=== PATIENT | male | born 1970 | race African-American/Black ===

== ENCOUNTER 2022-05-17 07:33 | Inpatient (IN) | payer OTHER ==
[2022-05-17] MEDS ORDERED: hydrALAZINE HCL 20 MG/ML 1 ML VIAL IVP STA ×2 (07:49→10:03)
--- NOTE | 2022-05-17 07:52 | ED ---
General Adult HPI - General Chief complaint: Headache Stated complaint: headache Time Seen by Provider: 05/17/22 07:40 Source: patient, RN notes reviewed, old records reviewed Mode of arrival: ambulatory Limitations: no limitations - History of Present Illness Initial comments: This is a 51-year-old male who presents emergency Department stating he has a past medical history significant for high blood pressure high cholesterol and smoking. Patient states she continues to smoke but he has not taken his blood pressure medications or cholesterol medications lately. Patient states he comes in today because on his way to work he had a headache and he had a little bit of blurred vision which she states this happened before when blood pressure is high so he came to the emergency department. Patient denies any numbness or weakness. Patient denies any lightheadedness dizziness or near syncopal episode. Patient denies any chest pain difficulty breathing shortness of breath. Patient denies any recent fever chills or cough. Patient denies any u pper respiratory symptoms. Patient denies any abdominal pain. Patient denies any recent injury or trauma. - Related Data Home Medications Medication Instructions Recorded Confirmed Atorvastatin [Lipitor] 80 mg PO DAILY 04/23/22 04/23/22 Ergocalciferol [Vitamin D2 (1250 1,250 mcg PO Q30D 04/23/22 04/23/22 Mcg = 71328 Iu)] Multivit-Min/Folic/Vit K/Lycop 1 each PO DAILY 04/23/22 04/23/22 [Men's Multivitamin Tablet] amLODIPine [Norvasc] 10 mg PO DAILY 04/23/22 04/23/22 cloNIDine HCL [Catapres] 0.2 mg PO DAILY 04/23/22 04/23/22 Allergies Allergy/AdvReac Type Severity Reaction Status Date / Time No Known Allergies Allergy Verified 05/17/22 07:37 Review of Systems ROS Statement: Those systems with pertinent positive or pertinent negative responses have been documented in the HPI. ROS Other: All systems not noted in ROS Statement are negative. Past Medical History Past Medical History: Hypertension History of Any Multi-Drug Resistant Organisms: None Reported Past Surgical History: No Surgical Hx Reported Past Anesthesia/Blood Transfusion Reactions: No Reported Reaction Past Psychological History: No Psychological Hx Reported Smoking Status: Never smoker - Past Family History Mother Family Medical History: No Reported History General Exam - General Exam Comments Initial Comments: GENERAL: Patient is well-developed and well-nourished. Patient is nontoxic and well- hydrated and is in mild distress. ENT: Neck is soft and supple. No significant lymphadenopathy is noted. Oropharynx is clear. Moist mucous membranes. Neck has full range of motion without eliciting any pain. EYES: The sclera were anicteric and conjunctiva were pink and moist. Extraocular movements were intact and pupils were equal round and reactive to light. Eye lids were unremarkable. PULMONARY: Unlabored respirations. Good breath sounds bilaterally. No audible rales rhonchi or wheezing was noted. CARDIOVASCULAR: There is a regular rate and rhythm without any murmurs gallops or rubs. ABDOMEN: Soft and nontender with normal bowel sounds. SKIN: Skin is clear with no lesions or rashes and otherwise unremarkable. NEUROLOGIC: Patient is alert and oriented x3. Cranial nerves II through XII are grossly intact. Motor and sensory are also intact. Normal speech, volume and content. Symmetrical smile. MUSCULOSKELETAL: Normal extremities with adequate strength and full range of motion. No lower extremity swelling or edema. No calf tenderness. LYMPHATICS: No significant lymphadenopathy is noted PSYCHIATRIC: Normal psychiatric evaluation. Limitations: no limitations Course Vital Signs 05/17/22 05/17/22 05/17/22 07:34 08:00 08:30 Temperature 98.1 F Pulse Rate 130 H 116 H 88 Respiratory 18 18 18 Rate Blood Pressure 215/114 197/120 192/116 O2 Sat by Pulse 97 99 Oximetry 05/17/22 09:47 Temperature Pulse Rate 87 Respiratory 18 Rate Blood Pressure 224/130 O2 Sat by Pulse 98 Oximetry Medical Decision Making - Medical Decision Making Patient's EKG shows sinus tachycardia at 120 bpm UT interval 250 QRS is 85 Q-T intervals 05 QTC is 377. Patient's EKG shows signs of LVH. No ST segment elevation.p Chest x-ray shows no acute abnormality. Patient was given hydralazine 20 mg times one and labetalol 20 mg 2. Patient's blood pressure was 224/130 and it did come down a little patient continued to have symptoms of headache which did improved but not completely resolved and because of blood pressure could not be better controlled [facility] the patient admitted the patient wrote admitting orders. - Lab Data Result diagrams: 05/17/22 07:55 07/01/22 07:55 Lab Results 05/17/22 05/17/22 05/17/22 Range/Units 07:55 07:55 07:55 WBC 7.0 (3.8-10.6) k/uL RBC 5.02 (4.30-5.90) m/uL Hgb 15.9 (13.0-17.5) gm/dL Hct 47.4 (39.0-53.0) % MCV 94.5 (80.0-100.0) fL MCH 31.7 (25.0-35.0) pg MCHC 33.6 (31.0-37.0) g/dL RDW 13.1 (11.5-15.5) % Plt Count 215 (150-450) k/uL MPV 7.4 Neutrophils % 79 % Lymphocytes % 16 % Monocytes % 3 % Eosinophils % 1 % Basophils % 0 % Neutrophils # 5.5 (1.3-7.7) k/uL Lymphocytes # 1.1 (1.0-4.8) k/uL Monocytes # 0.2 (0-1.0) k/uL Eosinophils # 0.1 (0-0.7) k/uL Basophils # 0.0 (0-0.2) k/uL PT 10.7 (9.0-12.0) sec INR 1.0 (<1.2) APTT 23.5 (22.0-30.0) sec Sodium 142 (137-145) mmol/L Potassium 3.9 (3.5-5.1) mmol/L Chloride 109 H (98-107) mmol/L Carbon Dioxide 22 (22-30) mmol/L Anion Gap 11 mmol/L BUN 11 (9-20) mg/dL Creatinine 1.26 H (0.66-1.25) mg/dL Est GFR (CKD-EPI)AfAm 76 (>60 ml/min/1.73 sqM) Est GFR (CKD-EPI)NonAf 66 (>60 ml/min/1.73 sqM) Glucose 108 H (74-99) mg/dL Calcium 9.5 (8.4-10.2) mg/dL Magnesium 2.0 (1.6-2.3) mg/dL Total Bilirubin 0.4 (0.2-1.3) mg/dL AST 26 (17-59) U/L ALT 17 (4-49) U/L Alkaline Phosphatase 60 (38-126) U/L Troponin I (0.000-0.034) ng/mL Total Protein 8.0 (6.3-8.2) g/dL Albumin 5.1 H (3.5-5.0) g/dL Urine Opiates Screen (NotDetected) Ur Oxycodone Screen (NotDetected) Urine Methadone Screen (NotDetected) Ur Propoxyphene Screen (NotDetected) Ur Barbiturates Screen (NotDetected) U Tricyclic Antidepress (NotDetected) Ur Phencyclidine Scrn (NotDetected) Ur Amphetamines Screen (NotDetected) U Methamphetamines Scrn (NotDetected) U Benzodiazepines Scrn (NotDetected) Urine Cocaine Screen (NotDetected) U Marijuana (THC) Screen (NotDetected) 05/17/22 05/17/22 Range/Units 07:55 07:55 WBC (3.8-10.6) k/uL RBC (4.30-5.90) m/uL Hgb (13.0-17.5) gm/dL Hct (39.0-53.0) % MCV (80.0-100.0) fL MCH (25.0-35.0) pg MCHC (31.0-37.0) g/dL RDW (11.5-15.5) % Plt Count (150-450) k/uL MPV Neutrophils % % Lymphocytes % % Monocytes % % Eosinophils % % Basophils % % Neutrophils # (1.3-7.7) k/uL Lymphocytes # (1.0-4.8) k/uL Monocytes # (0-1.0) k/uL Eosinophils # (0-0.7) k/uL Basophils # (0-0.2) k/uL PT (9.0-12.0) sec INR (<1.2) APTT (22.0-30.0) sec Sodium (137-145) mmol/L Potassium (3.5-5.1) mmol/L Chloride (98-107) mmol/L Carbon Dioxide (22-30) mmol/L Anion Gap mmol/L BUN (9-20) mg/dL Creatinine (0.66-1.25) mg/dL Est GFR (CKD-EPI)AfAm (>60 ml/min/1.73 sqM) Est GFR (CKD-EPI)NonAf (>60 ml/min/1.73 sqM) Glucose (74-99) mg/dL Calcium (8.4-10.2) mg/dL Magnesium (1.6-2.3) mg/dL Total Bilirubin (0.2-1.3) mg/dL AST (17-59) U/L ALT (4-49) U/L Alkaline Phosphatase (38-126) U/L Troponin I 0.019 (0.000-0.034) ng/mL Total Protein (6.3-8.2) g/dL Albumin (3.5-5.0) g/dL Urine Opiates Screen Not Detected (NotDetected) Ur Oxycodone Screen Not Detected (NotDetected) Urine Methadone Screen Not Detected (NotDetected) Ur Propoxyphene Screen Not Detected (NotDetected) Ur Barbiturates Screen Not Detected (NotDetected) U Tricyclic Antidepress Not Detected (NotDetected) Ur Phencyclidine Scrn Not Detected (NotDetected) Ur Amphetamines Screen Not Detected (NotDetected) U Methamphetamines Scrn Not Detected (NotDetected) U Benzodiazepines Scrn Not Detected (NotDetected) Urine Cocaine Screen Detected H (NotDetected) U Marijuana (THC) Screen Detected H (NotDetected) Disposition Clinical Impression: Hypertensive urgency, Cocaine abuse Disposition: ADMITTED IP TO THIS [facility] Time of Disposition: 10:37
[2022-05-17] MEDS ORDERED: LABETALOL SYRINGE 5 MG/ML IVP STA (07:55)
[2022-05-17 08:09] LABS: Basophils % (A) 0 %; Eosinophils # (A) 0.1 k/uL (0-0.7); Eosinophils % (A) 1 %; HCT 47.4 % (39.0-53.0); HGB 15.9 gm/dL (13.0-17.5); Lymphocytes # (A) 1.1 k/uL (1.0-4.8); Lymphocytes % (A) 16 %; MCH 31.7 pg (25.0-35.0); MCHC 33.6 g/dL (31.0-37.0); MCV 94.5 fL (80.0-100.0); Mean Platelet Volume 7.4; Monocytes # (A) 0.2 k/uL (0-1.0); Monocytes % (A) 3 %; Neutrophils # (A) 5.5 k/uL (1.3-7.7); Neutrophils % (A) 79 %; Platelet Count 215 k/uL (150-450); RBC 5.02 m/uL (4.30-5.90); RDW 13.1 % (11.5-15.5)
[2022-05-17 08:17] LABS: Partial Thromboplastin Time 23.5 sec (22.0-30.0); Prothrombin Time 10.7 sec (9.0-12.0)
[2022-05-17 08:28] LABS: Albumin 5.1 g/dL (3.5-5.0); Calcium 9.5 mg/dL (8.4-10.2); Potassium 3.9 mmol/L (3.5-5.1); Total Bilirubin 0.4 mg/dL (0.2-1.3)
[2022-05-17] MEDS ORDERED: LABETALOL 5 MG/ML VIAL MDV IVP STA (08:35)
--- NOTE | 2022-05-17 08:41 | CT ---
EXAMINATION TYPE: CT brain wo con DATE OF EXAM: 05/17/2022 COMPARISON: None HISTORY: 51-year-old male with headache TECHNIQUE: Examination was done in axial plane without intravenous contrast. Coronal and sagittal r econstructions performed. CT DLP: 1078.4 mGycm Automated exposure control for dose reduction was used. FINDINGS: There is no evidence of acute intracranial hemorrhage, acute ischemic changes, mass, mass-effect, or extra-axial fluid collection. There is no effacement of cerebral sulci or basal subarachnoid cister ns. There is no hydrocephalus. There is no midline shift. Wilson-white matter distinction is preserv ed. Incidental partially empty sella. Paranasal sinuses and mastoid air cells well pneumatized. Leftward nasal septal deviation. Orbits and globes are intact. IMPRESSION: No acute intracranial abnormality seen.
--- NOTE | 2022-05-17 08:46 | XR ---
EXAMINATION TYPE: XR chest 2V DATE OF EXAM: 05/17/2022 COMPARISON: NONE TECHNIQUE: PA and lateral views submitted. HISTORY: Dizziness and chest FINDINGS: The lungs are clear and there is no pneumothorax, pleural effusion, or focal pneumonia. AC joint ar thropathy or ascites. No overt failure. IMPRESSION: 1. No acute process.
[2022-05-17] MEDS ORDERED: ASPIRIN-ACET-CAFF 250-250-65MG 1 EACH TAB PO STA (09:14)
[2022-05-17] MEDS ORDERED: KETOROLAC 15 MG/ML 1 ML VIAL IVP STA (09:15)
[2022-05-17] MEDS ORDERED: SODIUM CHLORIDE 0.9% 1,000 ML IV ONE (10:37)
[2022-05-17 10:42] LABS: Amphetamine Screen,Urine Not Detected (NotDetected); Barbiturate Screen,Urine Not Detected (NotDetected); Benzodiazepines Screen,Urine Not Detected (NotDetected); Cocaine Screen,Urine Detected (NotDetected); Methadone Screen, Urine Not Detected (NotDetected); Opiate Screen,Urine Not Detected (NotDetected); Oxycodone Screen, Urine Not Detected (NotDetected); Phencyclidine Screen,Urine Not Detected (NotDetected); Tricyclic Antidepressant,Urine Not Detected (NotDetected); Urn Cannabinoid Scrn Detected (NotDetected)
[2022-05-17] MEDS ORDERED: KETOROLAC 15 MG/ML 1 ML VIAL IVP PRN (15:49)
[2022-05-17] MEDS ORDERED: hydrALAZINE HCL 20 MG/ML 1 ML VIAL IVP PRN ×2 (15:49→20:18)
[2022-05-17] MEDS ORDERED: LORazepam 2 MG/ML INJ IV PRN (15:51)
[2022-05-17] MEDS ORDERED: ERGOCALCIFEROL 1,250 MCG (50,000 IU) CAPSULE PO SCH (16:00)
[2022-05-17] MEDS ORDERED: LORazepam 1 MG/0.5 ML VIAL IV PRN (18:03)
--- NOTE | 2022-05-17 19:33 | HP ---
HISTORY AND PHYSICAL CHIEF COMPLAINTS: Headache and chest pain. HISTORY OF PRESENT ILLNESS: This 51-year-old gentleman with a past medical history of hypertension was complaining of headache and chest pain. The pain was mostly central and left-sided chest pain which was tight in character. His blood pressure was also high and the patient came to [facility]. There is no history of any associated symptoms. No history of radiation of the pain elsewhere. The patient reports using cocaine a couple of days ago. The patient also has multiple social stressors, including the recent passing of his and other family members. PAST MEDICAL HISTORY: Hypertension. HOME MEDICATIONS: Reviewed. They include vitamin D2. Doses and the rest of the medications are reviewed. ALLERGIES: NONE. FAMILY HISTORY: No history of heart disease or strokes in the family. SOCIAL HISTORY: Occasional alcohol, THC, cocaine occasionally. REVIEW OF SYSTEMS: Fourteen-point review of systems negative except as mentioned earlier. PHYSICAL EXAMINATION: Pulse is 82, blood pressure 144/88, respiration 18. HEENT: Conjunctivae normal. NECK: No jugular venous distention. CARDIOVASCULAR: S1, S2 muffled. RESPIRATION: Breath sounds diminished at the bases. Scattered rhonchi and crackles. ABDOMEN: Soft. LEGS: No edema. No swelling. NERVOUS SYSTEM: No focal deficit. LABS: CBC within normal limits. ASSESSMENT: 1. Chest pain for evaluation. 2. Positive cocaine. 3. Hypertension. RECOMMENDATIONS AND DISCUSSION: In this 51-year-old gentleman who presented with multiple complex medical issues, we will monitor the patient closely. I would recommend hydralazine p.r.n. and Norvasc to be continued. Cardiology consultation. Guarded prognosis because of multiple complex medical issues. Further recommendations to follow. MMODL / IJN: [id number] /
[2022-05-17] MEDS ORDERED: cloNIDine HCL 0.2 MG TAB PO STA (20:17)
[2022-05-17] MEDS: LORazepam 1 MG TAB PO PRN (20:39)
[2022-05-18] MEDS: ATORVASTATIN 80 MG TAB PO SCH (08:28)
[2022-05-18 08:40] LABS: Basophils # (A) 0.1 k/uL (0-0.2); Basophils % (A) 1 %; Eosinophils # (A) 0.1 k/uL (0-0.7); Eosinophils % (A) 2 %; HCT 44.1 % (39.0-53.0); HGB 14.3 gm/dL (13.0-17.5); Lymphocytes # (A) 2.2 k/uL (1.0-4.8); Lymphocytes % (A) 51 %; MCH 31.3 pg (25.0-35.0); MCHC 32.4 g/dL (31.0-37.0); MCV 96.6 fL (80.0-100.0); Mean Platelet Volume 8.9; Monocytes # (A) 0.2 k/uL (0-1.0); Monocytes % (A) 5 %; Neutrophils # (A) 1.7 k/uL (1.3-7.7); Neutrophils % (A) 40 %; Platelet Count 199 k/uL (150-450); RBC 4.56 m/uL (4.30-5.90); WBC 4.4 k/uL (3.8-10.6)
[2022-05-18 08:51] LABS: Calcium 8.8 mg/dL (8.4-10.2); Potassium 3.8 mmol/L (3.5-5.1)
[2022-05-18] MEDS ORDERED: cloNIDine HCL 0.2 MG TAB PO SCH (09:00)
[2022-05-18] MEDS ORDERED: amLODIPine 10 MG TAB PO SCH (09:00)
[2022-05-18] MEDS ORDERED: hydroCHLOROthiazide 25 MG TAB PO SCH (10:00)
--- NOTE | 2022-05-18 10:02 | P.CRDCN ---
History of Present Illness Consult date: 05/18/22 History of present illness: History of Present Illness: The patient is a 51-year-old male who presents with symptoms of headache, was noted to have hypertension, controlled. The patient has not taking his medication for the last few days. He denies any chest discomfort or significant dyspnea. He is usually active physically without any limitations. He has a long-standing history of hypertension and hyperlipidemia, he is a nondiabetic. He has a history of drug use and uses cocaine more frequently since the of his brother and recently. He has been under increased amount of stress. He has no history of CHF, he denies any PND, orthopnea or peripheral edema. He has no history of syncope. He has occasional alcohol intake. Medications: Was not taking medication on presentation Review of Systems: Respiratory: No history of asthma, bronchitis or recent cough. GI: No nausea or vomiting . No history of peptic ulcer disease. No recent GI bleed. : No hematuria or dysuria. Nervous System: No stroke or seizure. Physical Examination: 51-year-old male, alert and oriented no apparent distress ,Blood pressure 148/70, was 215/114 on admission Heart rate in the 70s Head: Normocephalic. Eyes: Sclerae nonicteric. Neck: Good carotid upstroke, no bruit, no jugular venous distention. Lungs: Clear to auscultation. Heart: Regular rate and rhythm, S1-S2, no S3, no rub. No murmur. Abdomen: Soft nontender, positive bowel sounds no organomegaly. Extremities: No edema, intact distal pulses. Labs: BUN 14, creatinine 1.1, potassium 3.8. Drug screen positive for cocaine and marijuana EKG: EKG was sinus tachycardia and left ventricle hypertrophy Impression: 1. Hypertension, uncontrolled. Patient was not taking his medication 2. History of drug abuse 3. History of smoking Plan: 1. Add hydrochlorothiazide and JOI inhibitor 2. Stop clonidine because of the concern of rebound 3. Continue amlodipine and statin 4. Obtain an echocardiogram with Doppler 5. The importance of drug abuse cessation was discussed with the patient 6. Depending on the trend of his blood pressure further recommendations will be made. Thank you for this consult we will follow with you. Past Medical History Past Medical History: Hypertension History of Any Multi-Drug Resistant Organisms: None Reported Past Surgical History: No Surgical Hx Reported Past Anesthesia/Blood Transfusion Reactions: No Reported Reaction Past Psychological History: No Psychological Hx Reported Smoking Status: Never smoker Past Alcohol Use History: Occasional Past Drug Use History: Marijuana Additional Drug Use History / Comment(s): OCCASIONAL MARIJUANA USE-INSTRUCTED TO REFRAIN FROM USE FOR AT LEAST 24 HOURS PRIOR TO PROCEDURE - Past Family History Mother Family Medical History: No Reported History Medications and Allergies Home Medications Medication Instructions Recorded Confirmed Type Atorvastatin [Lipitor] 80 mg PO DAILY 04/23/22 05/17/22 History Ergocalciferol [Vitamin D2 (1250 1,250 mcg PO QMONTHLY 04/23/22 05/17/22 History Mcg = 50087 Iu)] amLODIPine [Norvasc] 10 mg PO DAILY 04/23/22 05/17/22 History Allergies Allergy/AdvReac Type Severity Reaction Status Date / Time No Known Allergies Allergy Verified 05/17/22 11:05 Physical Exam Vitals: Vital Signs Temp Pulse Pulse Pulse Resp BP BP 05/18/22 08:19 05/18/22 08:00 98 F 63 20 148/71 05/18/22 03:53 98.2 F 64 116/66 05/18/22 00:12 98.0 F 66 111/63 05/17/22 21:13 74 05/17/22 20:00 98.6 F 75 18 199/69 05/17/22 19:26 73 18 167/80 05/17/22 19:00 167/86 05/17/22 18:54 18 176/92 05/17/22 18:00 176/92 05/17/22 17:00 69 16 156/86 05/17/22 16:18 62 16 159/97 05/17/22 15:29 82 18 145/88 05/17/22 13:22 80 18 190/84 05/17/22 10:56 90 18 183/99 Pulse Ox 05/18/22 08:19 97 05/18/22 08:00 100 05/18/22 03:53 100 05/18/22 00:12 99 05/17/22 21:13 05/17/22 20:00 100 05/17/22 19:26 100 05/17/22 19:00 05/17/22 18:54 99 05/17/22 18:00 05/17/22 17:00 100 05/17/22 16:18 99 05/17/22 15:29 99 05/17/22 13:22 99 05/17/22 10:56 100 Intake and Output 05/17/22 05/18/22 05/18/22 22:59 06:59 14:59 Other: Weight 81.647 kg Results 05/18/22 08:12 05/18/22 08:12 CBC 05/18/22 Range/Units 08:12 WBC 4.4 (3.8-10.6) k/uL RBC 4.56 (4.30-5.90) m/uL Hgb 14.3 (13.0-17.5) gm/dL Hct 44.1 (39.0-53.0) % Plt Count 199 (150-450) k/uL Comprehensive Metabolic Panel 05/18/22 Range/Units 08:12 Sodium 140 (137-145) mmol/L Potassium 3.8 (3.5-5.1) mmol/L Chloride 107 (98-107) mmol/L Carbon Dioxide 25 (22-30) mmol/L BUN 14 (9-20) mg/dL Creatinine 1.18 (0.66-1.25) mg/dL Glucose 95 (74-99) mg/dL Calcium 8.8 (8.4-10.2) mg/dL Current Medications Generic Name Dose Route Start Last Admin Trade Name Freq PRN Reason Stop Dose Admin Amlodipine Besylate 10 mg 05/18/22 09:00 05/18/22 08:28 Amlodipine 10 Mg Tab PO 10 mg DAILY RANDAL Administration Atorvastatin Calcium 80 mg 05/18/22 09:00 05/18/22 08:28 Atorvastatin 80 Mg Tab PO 80 mg DAILY RANDAL Administration Ergocalciferol 1,250 mcg 05/17/22 16:00 05/17/22 16:48 Ergocalciferol 1,250 Mcg (50,000 Iu) Capsule PO 1,250 mcg QMONTHLY RANDAL Administration Hydralazine HCl 10 mg 05/17/22 20:18 Hydralazine Hcl 20 Mg/Ml 1 Ml Vial IVP Q6HR PRN Blood Pressure - High Hydrochlorothiazide 25 mg 05/18/22 10:00 Hydrochlorothiazide 25 Mg Tab PO DAILY RANDAL Ketorolac Tromethamine 15 mg 05/17/22 15:49 Ketorolac 15 Mg/Ml 1 Ml Vial IVP 05/20/22 15:50 Q6HR PRN Pain Lisinopril 5 mg 05/18/22 21:00 Lisinopril 2.5 Mg Tab PO BID RANDAL Lorazepam 1 mg 05/17/22 20:18 05/17/22 20:39 Lorazepam 1 Mg Tab PO 1 mg Q6HR PRN Administration Anxiety Intake and Output 05/17/22 05/18/22 05/18/22 22:59 06:59 14:59 Other: Weight 81.647 kg 05/18/22 08:12 05/18/22 08:12
[2022-05-18 11:41] VITALS: BMI 23.7
--- NOTE | 2022-05-18 14:00 | CA ---
Transthoracic Echo Report Name: Guanakito Mercedes Age: 51 Gender: M : 1970 Exam Date: 05/18/2022 12:07 Exam Location: [place] [facility] Ht (in): 73 Wt (lb): 180 Ordering Physician: Shun Ngo MD ([id number]) Attending/Referring Phys: Magnetic Resonance Imaging Coordinator Josephine Cast RDCS Procedure CPT: Indications: HTN Cardiac Hx: Technical Quality: Good Contrast 1: Total Dose (mL): Contrast 2: Total Dose (mL): MEASUREMENTS (Male / Female) Normal Values 2D ECHO LV Diastolic Diameter PLAX 3.9 cm 4.2 - 5.9 / 3.9 - 5.3 cm LV Systolic Diameter PLAX 2.6 cm IVS Diastolic Thickness 1.4 cm 0.6 - 1.0 / 0.6 - 0.9 cm LVPW Diastolic Thickness 1.6 cm 0.6 - 1.0 / 0.6 - 0.9 cm LV Relative Wall Thickness 0.8 RV Internal Dim ED PLAX 2.4 cm LA Volume 62.6 cm??? 18 - 58 / 22 - 52 cm??? M-MODE Aortic Root Diameter MM 3.1 cm LA Systolic Diameter MM 2.9 cm LA Ao Ratio MM 0.9 AV Cusp Separation MM 2.3 cm DOPPLER AV Peak Velocity 140.1 cm/s AV Peak Gradient 7.9 mmHg LVOT Peak Velocity 122.2 cm/s LVOT Peak Gradient 6.0 mmHg MV Area PHT 5.3 cm??? Mitral E Point Velocity 79.1 cm/s Mitral A Point Velocity 82.2 cm/s Mitral E to A Ratio 1.0 MV Deceleration Time 142.1 ms TR Peak Velocity 190.5 cm/s TR Peak Gradient 14.5 mmHg Right Ventricular Systolic Press 19.5 mmHg FINDINGS Left Ventricle Moderately increased left ventricular wall thickness. Normal left ventricular systolic function with no obvious regional wall motion abnormalities. Left ventricular ejection fraction is estimated at 55-60 %. Right Ventricle Normal right ventricular size and function. Right ventricular systolic pressure within normal limits. Right Atrium Normal right atrial size. Left Atrium Mildly increased left atrial volume. No evidence for an atrial septal defect. Mitral Valve Structurally normal mitral valve. No mitral stenosis, regurgitation or prolapse. Aortic Valve Trileaflet aortic valve. No aortic valve stenosis or regurgitation. Tricuspid Valve Structurally normal tricuspid valve. Mild tricuspid regurgitation. Pulmonic Valve Trace pulmonic regurgitation. Pericardium No pericardial effusion. Aorta Normal size aortic root and proximal ascending aorta. CONCLUSIONS 1. Normal size and systolic function 2. Mild left atrial dilatation 3. Mild tricuspid regurgitation Previewed by: Dr. Shun Ngo MD (Electronically Signed) Final Date: 18 May 2022 13:59
[2022-05-18] MEDS: SODIUM CHLORIDE 0.9% 1,000 ML IV SCH (17:02)
--- NOTE | 2022-05-18 17:13 | PN ---
PROGRESS NOTE DATE OF SERVICE: 05/18/2022 This 51-year-old gentleman who was admitted with chest pain and hypertension is being closely monitored. Patient complains of dizziness at this time. No chest pain. No palpitations. Cardiology is following the patient closely. Patient has a history of cocaine. Two-D echo shows mild left atrial dilatation. On exam, pulse is 69, blood pressure 93/54, respiration 20. HEENT: Conjunctivae normal. NECK: No jugular venous distention. CARDIOVASCULAR: S1, S2 muffled. RESPIRATION: Breath sounds diminished at the bases. ABDOMEN: Soft. NERVOUS SYSTEM: No focal deficit. Labs are reviewed; normal. ASSESSMENT: 1. Chest pain for evaluation. 2. Positive cocaine. 3. Hypertension. 4. Dizziness. RECOMMENDATIONS AND DISCUSSION: I recommend to continue current medications, continue with the monitoring, symptomatic treatment. Cut down the blood pressure medications. Closely follow. Further recommendations to follow. MMODL / IJN: [id number] /
[2022-05-18] MEDS: lisinopriL 5 MG TAB PO SCH (20:02)
[2022-05-18] MEDS: LORazepam 1 MG TAB PO PRN (22:53)
[2022-05-19] MEDS: SODIUM CHLORIDE 0.9% 1,000 ML IV SCH (07:28)
[2022-05-19] MEDS: lisinopriL 5 MG TAB PO SCH (07:30)
[2022-05-19] MEDS: ATORVASTATIN 80 MG TAB PO SCH (07:30)
[2022-05-19 07:36] VITALS: BP 148/83; PULSE 63; RESP 16; TEMP 97.9
[2022-05-19] MEDS ORDERED: amLODIPine 2.5 MG TAB PO SCH (09:00)
[2022-05-19 11:07] LABS: Basophils # (A) 0.1 k/uL (0-0.2); Basophils % (A) 3 %; Eosinophils # (A) 0.1 k/uL (0-0.7); Eosinophils % (A) 2 %; HCT 43.7 % (39.0-53.0); HGB 14.2 gm/dL (13.0-17.5); Lymphocytes # (A) 2.5 k/uL (1.0-4.8); Lymphocytes % (A) 48 %; MCH 31.2 pg (25.0-35.0); MCHC 32.4 g/dL (31.0-37.0); Mean Platelet Volume 8.7; Monocytes # (A) 0.3 k/uL (0-1.0); Monocytes % (A) 5 %; Neutrophils # (A) 2.1 k/uL (1.3-7.7); Neutrophils % (A) 41 %; Platelet Count 183 k/uL (150-450); RBC 4.55 m/uL (4.30-5.90); RDW 12.8 % (11.5-15.5); WBC 5.2 k/uL (3.8-10.6)
[2022-05-19 11:17] LABS: African American GFR (CKD) >90 (>60 ml/min/1.73 sqM); Anion Gap 5 mmol/L; Blood Urea Nitrogen 11 mg/dL (9-20); Carbon Dioxide 30 mmol/L (22-30); Chloride 105 mmol/L (98-107); Glucose 73 mg/dL (74-99); Non-African American GFR(CKD) 81 (>60 ml/min/1.73 sqM); Potassium 4.2 mmol/L (3.5-5.1); Sodium 140 mmol/L (137-145)
--- NOTE | 2022-05-19 14:18 | P.PN ---
Subjective Progress Note Date: 05/19/22 This is a pleasant 51-year-old gentleman presented to the hospital with symptoms of headache and was noted to be hypertensive. He apparently was not taking his medications for the last few days. He was started back on amlodipine 2.5 mg daily as well as lisinopril 5 mg twice a day. Blood pressure has been better controlled. He does have a history of drug use and has been using cocaine more frequently since the of his brother and . He is currently working 2 jobs and not sleeping. Overall today he is feeling better. No further headaches. Blood pressure is better controlled. Echocardiogram with Doppler study showed normal LV systolic function with mild TR. Objective - Vital Signs Vital signs: Vital Signs Temp 97.9 F 05/19/22 07:35 Pulse 63 05/19/22 07:35 Resp 16 05/19/22 07:35 BP 148/83 05/19/22 07:35 Pulse Ox 99 05/19/22 08:13 FiO2 Intake & Output 05/18/22 05/19/22 05/19/22 18:59 06:59 18:59 Intake Total 150 222 Balance 150 222 Weight 81.647 kg Intake: Intake, IV Titration 150 Amount Sodium Chloride 0.9% 1, 150 000 ml @ 75 mls/hr IV . [id number] [facility] Rx#:[id number] Oral 222 Other: Voiding Method Toilet # Voids 2 - Exam PHYSICAL EXAMINATION: HEENT: Head is atraumatic, normocephalic. Pupils equal, round. Neck is supple. There is no elevated jugular venous pressure. HEART EXAMINATION: Heart sounds regular, S1 and S2 normal. No murmur or gallop heard. CHEST EXAMINATION: Lungs are clear to auscultation and precussion. No chest wall tenderness is noted on palpation or with deep breathing. ABDOMEN: Soft, nontender. Bowel sounds are heard. No organomegaly noted. EXTREMITIES: 2+ peripheral pulses with no evidence of peripheral edema and no calf tenderness noted. NEUROLOGIC patient is awake, alert and oriented x3. - Labs CBC & Chem 7: 05/19/22 10:42 05/19/22 10:42 Labs: Abnormal Lab Results - Last 24 Hours (Table) 05/19/22 Range/Units 10:42 Glucose 73 L (74-99) mg/dL Assessment and Plan Assessment: #1 hypertension #2 medication noncompliance #3 drug abuse #4 history of smoking Plan: From cardiology's perspective medications were reviewed and will continue the same. From our standpoint patient is stable for discharge home today. [employer] note has been reviewed, I agree with a documented findings and plan of care. Patient was seen and examined.
--- NOTE | 2022-05-22 09:24 | P.DS ---
Providers Date of admission: 05/17/22 10:37 Expected date of discharge: 05/19/22 Attending physician: Mark Agosto Consults: 05/17/22 15:48 Consult Physician Routine Consulting Provider: Francesco Denis Consult Reason/Comments: chest pain Do you want consulting provider notified?: Yes Primary care physician: Hardik Bernard Hospital Course: Final diagnosis Chest pain for evaluation Positive cocaine Hypertension Dizziness Discharge disposition Patient is being discharged in a stable condition with guarded prognosis to home. Patient will follow-up with Dr. Bernard in the outpatient setting upon discharge. Patient is to follow-up with cardiology Dr. Ngo as scheduled. Patient will continue on lisinopril and Norvasc. Total time taken is greater than 35 minutes. Hospital course This is a 51-year-old male who was recently admitted with chest pain and hypertension and was being closely monitored. Cardiology following and patient underwent 2-D echo showing some mild left atrial dilatation. Patient does have a past medical history of cocaine use and drug screen was positive for cocaine. Patient having some dizziness with medication adjustments and held overnight with close observation and patient reports feeling much better today and blood pressure in better control and would like to go home. Prescriptions provided for medications and encourage the patient follow-up with cardiology as scheduled along with primary care provider Dr. Bernard on discharge. Patient encouraged to refrain from any drug or alcohol use. Currently no reports of chest pain, shortness of breath, or palpitations. Patient is afebrile. No reports of nausea or vomiting and patient is tolerating diet. Patient will be discharged home today. Guarded prognosis. On exam vital signs are stable. Cardio S1, S2 are muffled. Respiratory system shows diminished breath sounds at the bases with no wheezing or rhonchi noted. Abdomen is soft and nontender. Nervous system shows no focal deficits. Please refer to medication reconciliation sheet for a list of medications. The impression and plan of care has been dictated by Rere Riojas, Nurse Practitioner as directed. Dr. Surendra MD I have performed a history and examination and MDM of this patient, discussed the same with the dictator, and agree with the dictator's assessment and plan as written ,documented as a scribe. Based on total visit time, I have performed more than 50% of the visit. Patient Condition at Discharge: Stable Plan - Discharge Summary Discharge Rx Participant: Yes New Discharge Prescriptions: New LORazepam [Ativan] 1 mg PO Q6HR PRN #6 tab PRN Reason: Anxiety lisinopriL [Zestril] 5 mg PO BID #60 tab amLODIPine [Norvasc] 2.5 mg PO DAILY #30 tab Continue Ergocalciferol [Vitamin D2 (1250 Mcg = 70127 Iu)] 1,250 mcg PO QMONTHLY Atorvastatin [Lipitor] 80 mg PO DAILY 30 Days #30 tab Discontinued amLODIPine [Norvasc] 10 mg PO DAILY Discharge Medication List Ergocalciferol [Vitamin D2 (1250 Mcg = 79298 Iu)] 1,250 mcg PO QMONTHLY 04/23/22 [History] Atorvastatin [Lipitor] 80 mg PO DAILY 30 Days #30 tab 05/19/22 [Rx] LORazepam [Ativan] 1 mg PO Q6HR PRN #6 tab 05/19/22 [Rx] amLODIPine [Norvasc] 2.5 mg PO DAILY #30 tab 05/19/22 [Rx] lisinopriL [Zestril] 5 mg PO BID #60 tab 05/19/22 [Rx] Follow up Appointment(s)/Referral(s): Hardik Bernard MD [Primary Care Provider] - 1-2 days (Offices are closed please call to make a post hospital follow up appointment.) Shun Ngo MD [STAFF PHYSICIAN] - 1 Week (Offices are closed please call to make a post hospital follow up appointment.) Ambulatory/Diagnostic Orders: Complete Blood Count w/diff [LAB.AMB] Time Frame: 3 Days, Location: None Selected Patient Instructions/Handouts: Hypertensive Crisis (DC) Activity/Diet/Wound Care/Special Instructions: Activity Limited until follow-up Follow-up with primary care provider on discharge Follow-up with cardiology outpatient Continue heart healthy diet Continue to monitor blood pressure and keep a daily diary of readings for primary and cardiology follow-up Recommend repeat CBC and BMP in the next 2-3 days Avoid any alcohol or drug use Discharge Disposition: HOME SELF-CARE
== END 2022-05-19 14:43 | disposition home or self-care (01) | DRG 305 ==
LOC: EC 07:33 → 3SCARD 10:37
PROVIDERS: ADMIT Hospitalist; ATTEND Hospitalist
DX: I11.9 Hypertensive heart disease without heart failure (principal); I16.0 Hypertensive urgency; F14.10 Cocaine abuse, uncomplicated; R07.9 Chest pain, unspecified; R00.0 Tachycardia, unspecified; T46.1X6A Underdosing of calcium-channel blockers, initial encounter; T46.4X6A Underdosing of angiotensin-converting-enzyme inhibitors, initial encounter; Z91.14 Patient's other noncompliance with medication regimen; E78.00 Pure hypercholesterolemia, unspecified; F17.210 Nicotine dependence, cigarettes, uncomplicated; F43.9 Reaction to severe stress, unspecified; I07.1 Rheumatic tricuspid insufficiency; Z72.820 Sleep deprivation; Z63.4 Disappearance and death of family member; Z79.899 Other long term (current) drug therapy; Z71.51 Drug abuse counseling and surveillance of drug abuser; Z71.3 Dietary counseling and surveillance
CPT/HCPCS: 36415; 70450; 71046; 80048; 80053; 80306; 83735; 84484; 85025; 85610; 85730; 93005; 93306; 94760; 96361; 96374; 96375; 96376; 99285

== ENCOUNTER 2022-06-11 12:08 | Inpatient (IN) | payer MEDICAID, OTHER ==
--- NOTE | 2022-06-11 17:26 | ED ---
Psych HPI - General Chief Complaint: Psychiatric Symptoms Stated Complaint: Depression Time Seen by Provider: 06/11/22 14:47 Source: patient Mode of arrival: ambulatory - History of Present Illness Initial Comments: Patient is a 51-year-old male who presents to the emergency department for psychiatric evaluation. Patient was sent in by Dr. Bernard today. Patient states he is very depressed due to some major changes. His this past October and his brother very recently. Patient recently lost custody of his stepdaughter. Patient states he used to see a therapist which helped him however he stopped seeing the therapist because they told him he was doing better. Patient denies suicidal and homicidal ideation. Admits to alcohol use, estimates a tall beer every other day. Admits to cocaine use. Last time using cocaine was today which was 3-4 lines. Denies other drug use. Denies fever, chills, chest pain, palpitations, lightheadedness, dizziness, shortness of breath, abdominal pain, nausea, vomiting, and other concerns. - Related Data Home Medications Medication Instructions Recorded Confirmed Ergocalciferol [Vitamin D2 (1250 1,250 mcg PO QMONTHLY 04/23/22 06/11/22 Mcg = 92580 Iu)] amLODIPine [Norvasc] 10 mg PO DAILY 06/11/22 06/11/22 Previous Rx's Medication Instructions Recorded Atorvastatin [Lipitor] 80 mg PO DAILY 30 Days #30 tab 05/19/22 lisinopriL [Zestril] 5 mg PO BID #60 tab 05/19/22 Allergies Allergy/AdvReac Type Severity Reaction Status Date / Time No Known Allergies Allergy Verified 06/11/22 15:58 Review of Systems ROS Statement: Those systems with pertinent positive or pertinent negative responses have been documented in the HPI. ROS Other: All systems not noted in ROS Statement are negative. Past Medical History Past Medical History: Hypertension History of Any Multi-Drug Resistant Organisms: None Reported Past Surgical History: No Surgical Hx Reported Past Anesthesia/Blood Transfusion Reactions: No Reported Reaction Past Psychological History: No Psychological Hx Reported Smoking Status: Never smoker Past Alcohol Use History: Occasional Past Drug Use History: Cocaine, Marijuana - Past Family History Mother Family Medical History: No Reported History General Exam General appearance: alert, in no apparent distress Head exam: Present: atraumatic, normocephalic, normal inspection Eye exam: Present: normal appearance, PERRL, EOMI. Absent: scleral icterus, conjunctival injection, periorbital swelling Respiratory exam: Present: normal lung sounds bilaterally. Absent: respiratory distress, wheezes, rales, rhonchi, stridor Cardiovascular Exam: Present: regular rate, normal rhythm, normal heart sounds. Absent: systolic murmur, diastolic murmur, rubs, gallop, clicks Neurological exam: Present: alert, oriented X3, CN II-XII intact Psychiatric exam: Present: normal affect, depressed. Absent: normal mood Skin exam: Present: warm, dry, intact, normal color. Absent: rash Course Vital Signs 06/11/22 12:32 Temperature 98.5 F Pulse Rate 82 Respiratory 18 Rate Blood Pressure 169/97 O2 Sat by Pulse 99 Oximetry Medical Decision Making - Medical Decision Making This is a 51-year-old male who presents for psychiatric evaluation. Thorough history and examination were performed. Patient is well-appearing. Breath alcohol is 0. Due to patient's recent cocaine use I did obtain EKG which shows sinus rhythm without ST segment or T-wave changes. Patient is cleared medically. He may be evaluated by emergency psychiatric services. Patient evaluated and will be admitted. Dr. Mancuso is my attending. - Lab Data Lab Results 06/11/22 Range/Units 17:55 Urine Color Light Yellow Urine Appearance Cloudy (Clear) Urine pH 7.5 (5.0-8.0) Ur Specific [place] 1.011 (1.001-1.035) Urine Protein Negative (Negative) Urine Glucose (UA) Negative (Negative) Urine Ketones 1+ H (Negative) Urine Blood Negative (Negative) Urine Nitrite Negative (Negative) Urine Bilirubin Negative (Negative) Urine Urobilinogen <2.0 (<2.0) mg/dL Ur Leukocyte Esterase Negative (Negative) Urine RBC 1 (0-5) /hpf Urine WBC 2 (0-5) /hpf Ur Squamous Epith Cells <1 (0-4) /hpf Urine Mucus Rare H (None) /hpf Urine Yeast (Budding) Many H (None) /hpf Urine Opiates Screen Not Detected (NotDetected) Ur Oxycodone Screen Not Detected (NotDetected) Urine Methadone Screen Not Detected (NotDetected) Ur Propoxyphene Screen Not Detected (NotDetected) Ur Barbiturates Screen Not Detected (NotDetected) U Tricyclic Antidepress Not Detected (NotDetected) Ur Phencyclidine Scrn Not Detected (NotDetected) Ur Amphetamines Screen Not Detected (NotDetected) U Methamphetamines Scrn Not Detected (NotDetected) U Benzodiazepines Scrn Not Detected (NotDetected) Urine Cocaine Screen Detected H (NotDetected) U Marijuana (THC) Screen Detected H (NotDetected) - EKG Data EKG Comments: EKG taken at 16:32 Sinus rhythm, no ST segment or T-wave abnormalities Ventricular rate 66 MO interval 125 QRS duration 89 QTc 434 Disposition Clinical Impression: Depression Disposition: ADMITTED IP TO THIS [facility] Condition: Good Referrals: Hardik Bernard MD [Primary Care Provider] - 1-2 days Decision Time: 20:56
[2022-06-11 18:29] LABS: Appearance,Urine Cloudy (Clear); Bilirubin,Urine Negative (Negative); Blood,Urine Negative (Negative); Budding Yeast,Urine Many /hpf; Color,Urine Light Yellow; Glucose,Urine (UA) Negative (Negative); Ketones,Urine 1+ (Negative); Leukocyte Esterase,Urine Negative (Negative); Mucus,Urine Rare /hpf; Nitrite,Urine Negative (Negative); PH, Urine 7.5 (5.0-8.0); Protein,Urine Negative (Negative); RBC,Urine 1 /hpf (0-5); Specific Gravity,Urine 1.011 (1.001-1.035); Squamous Epithelial Cell,Urine <1 /hpf (0-4); Urobilinogen,Urine <2.0 mg/dL (<2.0); WBC,Urine 2 /hpf (0-5)
[2022-06-11 18:34] LABS: Amphetamine Screen,Urine Not Detected (NotDetected); Barbiturate Screen,Urine Not Detected (NotDetected); Benzodiazepines Screen,Urine Not Detected (NotDetected); Cocaine Screen,Urine Detected (NotDetected); Methadone Screen, Urine Not Detected (NotDetected); Opiate Screen,Urine Not Detected (NotDetected); Oxycodone Screen, Urine Not Detected (NotDetected); Phencyclidine Screen,Urine Not Detected (NotDetected); Tricyclic Antidepressant,Urine Not Detected (NotDetected); Urn Cannabinoid Scrn Detected (NotDetected)
[2022-06-11] MEDS: amLODIPine 10 MG TAB PO SCH (23:12)
[2022-06-11] MEDS: ATORVASTATIN 80 MG TAB PO SCH (23:12)
[2022-06-11] MEDS: lisinopriL 5 MG TAB PO SCH (23:12)
[2022-06-11] MEDS ORDERED: MAG HYDROX/AL HYDROX/SIMETH 30 ML CUP PO PRN (23:54)
[2022-06-11] MEDS ORDERED: ACETAMINOPHEN TAB 325 MG TAB PO PRN (23:54)
[2022-06-11] MEDS ORDERED: MAGNESIUM HYDROXIDE 2,400 MG/10 ML CUP PO PRN (23:54)
[2022-06-11] MEDS ORDERED: HALOPERIDOL LACTATE 5 MG/ML 1 ML VIAL IM PRN (23:54)
[2022-06-11] MEDS ORDERED: LORazepam 1 MG TAB PO PRN (23:54)
[2022-06-11] MEDS ORDERED: LORazepam 2 MG/ML INJ IM PRN (23:59)
[2022-06-11] MEDS ORDERED: haloperidoL 5 MG TAB PO PRN (23:59)
[2022-06-12 07:33] LABS: Basophils % (A) 1 %; Eosinophils # (A) 0.1 k/uL (0-0.7); Eosinophils % (A) 2 %; HCT 52.7 % (39.0-53.0); Lymphocytes % (A) 57 %; MCH 31.8 pg (25.0-35.0); MCHC 32.9 g/dL (31.0-37.0); MCV 96.6 fL (80.0-100.0); Mean Platelet Volume 8.1; Monocytes # (A) 0.2 k/uL (0-1.0); Monocytes % (A) 3 %; Neutrophils # (A) 1.9 k/uL (1.3-7.7); Neutrophils % (A) 37 %; Platelet Count 286 k/uL (150-450); RBC 5.46 m/uL (4.30-5.90); RDW 13.5 % (11.5-15.5); WBC 5.3 k/uL (3.8-10.6)
[2022-06-12 07:41] LABS: HGB 17.3 gm/dL (13.0-17.5)
[2022-06-12 07:56] LABS: ALT 17 U/L (4-49); AST 26 U/L (17-59); African American GFR (CKD) 81 (>60 ml/min/1.73 sqM); Albumin 4.6 g/dL (3.5-5.0); Alkaline Phosphatase 56 U/L (38-126); Anion Gap 7 mmol/L; Blood Urea Nitrogen 11 mg/dL (9-20); Calcium 9.6 mg/dL (8.4-10.2); Carbon Dioxide 29 mmol/L (22-30); Chloride 104 mmol/L (98-107); Glucose 92 mg/dL (74-99); Non-African American GFR(CKD) 70 (>60 ml/min/1.73 sqM); Potassium 4.1 mmol/L (3.5-5.1); Sodium 140 mmol/L (137-145); Total Bilirubin 0.7 mg/dL (0.2-1.3); Total Protein 7.5 g/dL (6.3-8.2)
[2022-06-12] MEDS: lisinopriL 5 MG TAB PO SCH ×2 (09:12→20:54)
[2022-06-12] MEDS: ATORVASTATIN 80 MG TAB PO SCH (09:12)
[2022-06-12] MEDS: amLODIPine 10 MG TAB PO SCH (09:12)
[2022-06-12 10:47] LABS: Chol/HDL Ratio 3.32 Ratio; LDL Cholesterol,Calculated 126.4 mg/dL (0.0-131.0); VLDL Calculation 18.86 mg/dL (5.00-40.00)
--- NOTE | 2022-06-12 14:30 | P.HP ---
Psychiatric H&P - . H&P Date: 06/12/22 History & Physical: Allergies Allergy/AdvReac Type Severity Reaction Status Date / Time No Known Allergies Allergy Verified 06/11/22 15:58 Vital Signs Temp 97.8 F 06/12/22 09:13 Pulse 82 06/12/22 09:13 Resp 16 06/12/22 09:13 BP 138/80 06/12/22 09:13 Pulse Ox 95 06/12/22 09:13 FiO2 Intake & Output 06/11/22 06/12/22 06/12/22 18:59 06:59 18:59 Weight 70.307 kg Laboratory Last Values WBC 5.3 k/uL (3.8-10.6) 06/12/22 06:54 RBC 5.46 m/uL (4.30-5.90) 06/12/22 06:54 Hgb 17.3 gm/dL (13.0-17.5) D 06/12/22 06:54 Hct 52.7 % (39.0-53.0) 06/12/22 06:54 MCV 96.6 fL (80.0-100.0) 06/12/22 06:54 MCH 31.8 pg (25.0-35.0) 06/12/22 06:54 MCHC 32.9 g/dL (31.0-37.0) 06/12/22 06:54 RDW 13.5 % (11.5-15.5) 06/12/22 06:54 Plt Count 286 k/uL (150-450) 06/12/22 06:54 MPV 8.1 06/12/22 06:54 Neutrophils % 37 % 06/12/22 06:54 Lymphocytes % 57 % 06/12/22 06:54 Monocytes % 3 % 06/12/22 06:54 Eosinophils % 2 % 06/12/22 06:54 Basophils % 1 % 06/12/22 06:54 Neutrophils # 1.9 k/uL (1.3-7.7) 06/12/22 06:54 Lymphocytes # 3.0 k/uL (1.0-4.8) 06/12/22 06:54 Monocytes # 0.2 k/uL (0-1.0) 06/12/22 06:54 Eosinophils # 0.1 k/uL (0-0.7) 06/12/22 06:54 Basophils # 0.0 k/uL (0-0.2) 06/12/22 06:54 Sodium 140 mmol/L (137-145) 06/12/22 06:54 Potassium 4.1 mmol/L (3.5-5.1) 06/12/22 06:54 Chloride 104 mmol/L (98-107) 06/12/22 06:54 Carbon Dioxide 29 mmol/L (22-30) 06/12/22 06:54 Anion Gap 7 mmol/L 06/12/22 06:54 BUN 11 mg/dL (9-20) 06/12/22 06:54 Creatinine 1.21 mg/dL (0.66-1.25) 06/12/22 06:54 Est GFR (CKD-EPI)AfAm 81 (>60 ml/min/1.73 sqM) 06/12/22 06:54 Est GFR (CKD-EPI)NonAf 70 (>60 ml/min/1.73 sqM) 06/12/22 06:54 Glucose 92 mg/dL (74-99) 06/12/22 06:[address] Glu mg/dL 111 06/12/22 06:54 Hemoglobin A1c 5.5 % (0.0-6.0) 06/12/22 06:54 Calcium 9.6 mg/dL (8.4-10.2) 06/12/22 06:54 Total Bilirubin 0.7 mg/dL (0.2-1.3) 06/12/22 06:54 AST 26 U/L (17-59) 06/12/22 06:54 ALT 17 U/L (4-49) 06/12/22 06:54 Alkaline Phosphatase 56 U/L (38-126) 06/12/22 06:54 Total Protein 7.5 g/dL (6.3-8.2) 06/12/22 06:54 Albumin 4.6 g/dL (3.5-5.0) 06/12/22 06:54 Triglycerides 94.30 mg/dL (0.00-149.00) 06/12/22 06:54 Cholesterol 208.00 mg/dL (0.00-200.00) H 06/12/22 06:54 LDL Cholesterol, Calc 126.4 mg/dL (0.0-131.0) 06/12/22 06:54 VLDL Cholesterol, Calc 18.86 mg/dL (5.00-40.00) 06/12/22 06:54 HDL Cholesterol 62.70 mg/dL (40.00-60.00) H 06/12/22 06:54 Cholesterol/HDL Ratio 3.32 Ratio 06/12/22 06:54 TSH 2.450 mIU/L (0.465-4.680) 06/12/22 06:54 Urine Color Light Yellow 06/11/22 17:55 Urine Appearance Cloudy (Clear) 06/11/22 17:55 Urine pH 7.5 (5.0-8.0) 06/11/22 17:55 Ur Specific [place] 1.011 (1.001-1.035) 06/11/22 17:55 Urine Protein Negative (Negative) 06/11/22 17:55 Urine Glucose (UA) Negative (Negative) 06/11/22 17:55 Urine Ketones 1+ (Negative) H 06/11/22 17:55 Urine Blood Negative (Negative) 06/11/22 17:55 Urine Nitrite Negative (Negative) 06/11/22 17:55 Urine Bilirubin Negative (Negative) 06/11/22 17:55 Urine Urobilinogen <2.0 mg/dL (<2.0) 06/11/22 17:55 Ur Leukocyte Esterase Negative (Negative) 06/11/22 17:55 Urine RBC 1 /hpf (0-5) 06/11/22 17:55 Urine WBC 2 /hpf (0-5) 06/11/22 17:55 Ur Squamous Epith Cells <1 /hpf (0-4) 06/11/22 17:55 Urine Mucus Rare /hpf (None) H 06/11/22 17:55 Urine Yeast (Budding) Many /hpf (None) H 06/11/22 17:55 Urine Opiates Screen Not Detected (NotDetected) 06/11/22 17:55 Ur Oxycodone Screen Not Detected (NotDetected) 06/11/22 17:55 Urine Methadone Screen Not Detected (NotDetected) 06/11/22 17:55 Ur Propoxyphene Screen Not Detected (NotDetected) 06/11/22 17:55 Ur Barbiturates Screen Not Detected (NotDetected) 06/11/22 17:55 U Tricyclic Antidepress Not Detected (NotDetected) 06/11/22 17:55 Ur Phencyclidine Scrn Not Detected (NotDetected) 06/11/22 17:55 Ur Amphetamines Screen Not Detected (NotDetected) 06/11/22 17:55 U Methamphetamines Scrn Not Detected (NotDetected) 06/11/22 17:55 U Benzodiazepines Scrn Not Detected (NotDetected) 06/11/22 17:55 Urine Cocaine Screen Detected (NotDetected) H 06/11/22 17:55 U Marijuana (THC) Screen Detected (NotDetected) H 06/11/22 17:55 Coronavirus (PCR) Not Detected (Not Detectd) 06/11/22 21:20 06/12/22 14:30 IDENTIFYING DATA: Patient is a , unemployed, 51-year-old -[place] male who presents to the hospital for worsening depression and suicidal ideation. HPI: Patient presented to the hospital on 06/11/2022, for psychiatric evaluation due to a significant decrease in function in the context of numerous life stressors. Patient reports that this year has been "a long-haul for me." He reports that in October, his after complications from a surgical procedure. He also reports that with this huge loss in his life, he has had some financial struggles and has had to move out of his home and stay with family. Further stressors include the recent loss of his brother 2 months ago unexpectedly. The patient reports that he has had a significant decline in his mental health and has lost approximately 30 pounds over this period of time. He endorses significant symptoms of depression including anhedonia, decreased appetite, poor sleep, and suicidal ideation. He vehemently denies that he would ever try to hurt himself however acknowledges to this provider that he constantly has thoughts of wanting to join his who has . The patient also expresses that he has recently quit his job because of how depressed and stressed out he has been. He is pretty working 2 jobs prior to loss of his . He is now currently unemployed. The patient reports that this past weekend, he was binging on alcohol and cocaine in order to cope with his worsening depression. He has realized that this has caused him more grief and problems and that he needs to get help. In regards to other mood symptoms, the patient denies any significant symptoms of bipolar disorder. He reports no increased goal-directed activity, grandiosity, or mood lability. The patient does acknowledge some psychotic symptoms including hearing the voice of his . He otherwise denies any other psychotic symptoms. He reports no visual hallucinations, paranoia, or other delusions. The patient does have access to a firearm. PAST PSYCHIATRIC HISTORY: Patient states that he has never been treated or diagnosed for any psychiatric illness in the past. Patient denies being on any psychiatric medications. Patient denies any previous psychiatric hospitalizations. Patient denies any psychiatric outpatient follow-up. Patient denies any history of suicide attempts in the past. PMH: Past Medical History: Hypertension History of Any Multi-Drug Resistant Organisms: None Reported Past Surgical History: No Surgical Hx Reported Past Anesthesia/Blood Transfusion Reactions: No Reported Reaction Past Psychological History: No Psychological Hx Reported Smoking Status: Never smoker Past Alcohol Use History: Occasional Past Drug Use History: Cocaine, Marijuana ALLERGIES: NO KNOWN DRUG ALLERGIES CHEMICAL DEPENDENCY HISTORY: The patient reports that he was using cocaine over the past week. He states that he uses cocaine twice per week when he is feeling particularly depressed. He also reports using marijuana once per week. He reports occasional alcohol use. He denies any tobacco use. FAMILY PSYCHIATRIC/SUBSTANCE USE HISTORY: No reported family psychiatric history or substance abuse history. SOCIAL HISTORY: Patient was born and raised in [place], [place]. He is currently after being with his /partner for 20 years. They have a 15-year-old son together. He reports that he is a member of 2 churches. 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 MENTAL STATUS EXAM: General Appearance: Patient appears to be stated age is alert, directable, and attempts to cooperate. Patient appears to have slightly disheveled hygiene and grooming. Behavior: Patient is seated without any agitated behavior. Patient is tearful throughout the interview. Speech: Patient's speech is fluent and nonpressured. Mood/Affect: Patient reports their mood is depressed, affect is congruent and tearful and morose. Suicidality/Homicidality: Patient endorses suicidal ideation however denies any homicidal ideation, intention, and/or plan. Perceptions: Patient denies any visual hallucinations and auditory hallucinations of his recently . Though content/process: There is no evidence of any delusional thought content and thought process is linear and goal-directed. Memory and concentration: AOX3, grossly intact for the purposes of this session. Can spell "WORLD" backwards Judgment and insight: Fair STRENGTHS/WEAKNESSES: Patient's strengths include a supportive family as well as future orientation. He also has orthodox beliefs against suicide. Weakness is the patient's substance abuse and acute grief. INTELLECT: average IMPRESSIONS: Major depressive disorder, single episode, severe Cocaine use disorder Cannabis use disorder PLAN: -Patient is admitted under voluntary status to [facility] for stabilization of psychiatric symptoms and safety. Patient signed adult voluntary form and medication consent and is placed in patient's chart. -Medications : Will start patient on Remeron 15 mg by mouth at bedtime for depression/insomnia/appetite Restoril 7.5 mg by mouth at bedtime for acute stress -Ativan and Haldol PRN for agitation/aggression -Patient was counselled on substance abuse and desired to cut back on use -Patient was informed of the risks, benefits and side effects of the medication and patient verbally consented to taking the medications. Patient signed med consent form and was placed in chart. -Internal Medicine consult to perform medical evaluation and physical. -NRT - nicotine patch -SW on board for discharge planning. Encourage patient to participate in groups to work on coping skills. 06/12/22 14:30
[2022-06-12] MEDS: TEMAZEPAM 7.5 MG CAP PO SCH (20:54)
[2022-06-12] MEDS: MIRTAZAPINE 15 MG TAB PO SCH (20:54)
[2022-06-13] MEDS: lisinopriL 5 MG TAB PO SCH ×2 (08:12→20:50)
[2022-06-13] MEDS: ATORVASTATIN 80 MG TAB PO SCH (08:12)
[2022-06-13] MEDS: amLODIPine 10 MG TAB PO SCH (08:12)
--- NOTE | 2022-06-13 10:21 | P.PN ---
Progress Note - Text Progress Note Date: 06/13/22 Interval History: Patient was seen resting in bed and was directable and agreeable to speak with auto service writer in the office., Patient is not reporting any auditory or visual hallucinations. He is denying any paranoia or other delusions. The patient has been adherent with his medications and is not reporting any significant side effects. He reports that he was able to sleep well and feels well rested this morning. The patient informs this provider that he would like to speak with the medical social worker to move his services to [place]. He wishes to apply for [employer] and possibly go to a 3/4 house. In regards to grief and bereavement, he is in agreement to work on a letter for his brother and . Mental Status Exam: General Appearance: Patient appears to be stated age is alert, directable, and cooperative. Behavior: Patient is calmly seated without any agitated behavior. Speech: Patient's speech is fluent and nonpressured. Mood/Affect: Mood is improving mildly, affect is congruent and constricted. Suicidality/Homicidality: Patient denies having any suicidal or homicidal ideation intent or plan. Perceptions: Patient denies any visual hallucinations and denies any auditory hallucinations Though content/process: There is no evidence of any delusional thought content and thought process is linear and goal-directed. Memory and concentration: AOX3, grossly intact for the purposes of this session Judgment and insight: Improving mildly Vital Signs Temp 97.8 F 06/12/22 09:13 Pulse 70 06/13/22 08:13 Resp 16 06/12/22 09:13 BP 159/85 06/13/22 08:13 Pulse Ox 95 06/12/22 09:13 FiO2 Laboratory Results - Last 24 Hours 06/12/22 06/12/22 06:54 06:[address] Glu mg/dL 111 Hemoglobin A1c 5.5 Triglycerides 94.30 Cholesterol 208.00 H LDL Cholesterol, Calc 126.4 VLDL Cholesterol, Calc 18.86 HDL Cholesterol 62.70 H Cholesterol/HDL Ratio 3.32 Assessment Major depressive disorder, single episode, severe Cocaine use disorder Cannabis use disorder Plan: -Patient continues to meet criteria for inpatient psychiatric admission for symptom stabilization and safety. Patient has signed adult voluntary form and medication consent and was placed in patient's chart. -Medications: Remeron 15 mg by mouth at bedtime for depression/insomnia/appetite Restoril 7.5 mg by mouth at bedtime for acute stress -When necessary Ativan and Haldol for agitation/aggression. -NRT - nicotine patch -SW on board for discharge planning. Encouraged the patient to participate in milieu.
[2022-06-13] MEDS: TEMAZEPAM 7.5 MG CAP PO SCH (20:50)
[2022-06-13] MEDS: MIRTAZAPINE 15 MG TAB PO SCH (20:50)
[2022-06-14 07:02] VITALS: BP 137/73; PULSE 77; RESP 14; TEMP 97.6
[2022-06-14] MEDS: amLODIPine 10 MG TAB PO SCH (08:24)
[2022-06-14] MEDS: lisinopriL 5 MG TAB PO SCH (08:25)
[2022-06-14] MEDS: ATORVASTATIN 80 MG TAB PO SCH (08:25)
--- NOTE | 2022-06-14 13:08 | CONS ---
CONSULTATION CHIEF COMPLAINT: Major depression with suicidal thoughts. HISTORY OF PRESENT ILLNESS: This is the first known psych admission for this 51-year-old . He has a long-standing history of hypertension and hyperlipidemia but he also has had trouble with narcotic abuse and addiction as well as depression. He came into the office on the day of admission, expressing hopelessness. His has . He just lost his job. He has been using heroin and cocaine on and off. He was requesting help and was very depressed and suicidal. He was sent to the emergency room. He was admitted. REVIEW OF SYSTEMS: He denies any headaches, chest pain, abdominal pain, shortness of breath, fever, chills, urinary complaints, etc. Past medical history, family history, personal and social histories reveal he is not allergic to any medication. He has been on amlodipine 10 mg once a day, atorvastatin 80 once a day, clonidine 0.2 twice a day, and vitamin D3. PHYSICAL EXAM: Blood pressure is 158/100 with a pulse of 83 and regular, respirations of 18, he is afebrile. In general he appeared to be tall, slender and marginally nourished with a BMI 20.8. Head, ears, eyes, nose, mouth and throat were normal. Chest is clear. Cardiac exam is normal. Abdomen is flat, soft and nontender. Extremities: Normal. Neurological is intact. IMPRESSION: He is admitted to the hospital with diagnoses: 1. Major depression with suicidal thoughts. 2. Narcotic abuse and addiction. RECOMMENDATIONS: None at this time. Thank you respectfully. SHAY / OUMARN: [id number] /
--- NOTE | 2022-06-14 13:14 | P.DS ---
Providers Date of admission: 06/11/22 22:51 Expected date of discharge: 06/14/22 Attending physician: Serjio Hutchins MD Consults: 06/11/22 23:54 Consult Physician Routine Consulting Provider: Hardik Bernard Consult Reason/Comments: H&P and medical Do you want consulting provider notified?: Yes Primary care physician: Hardik Bernard - Discharge Diagnosis(es) (1) Major depressive disorder Current Visit: Yes Status: Acute Priority: High (2) Cannabis use disorder Current Visit: Yes Status: Chronic Priority: Medium (3) Cocaine abuse Current Visit: Yes Status: Chronic Priority: Medium Hospital Course: Admission HPI: Patient is a , unemployed, 51-year-old -[place] male who presents to the hospital for worsening depression and suicidal ideation. Patient presented to the hospital on 06/11/2022, for psychiatric evaluation due to a significant decrease in function in the context of numerous life stressors. Patient reports that this year has been "a long-haul for me." He reports that in October, his after complications from a surgical procedure. He also reports that with this huge loss in his life, he has had some financial struggles and has had to move out of his home and stay with family. Further s tressors include the recent loss of his brother 2 months ago unexpectedly. The patient reports that he has had a significant decline in his mental health and has lost approximately 30 pounds over this period of time. He endorses significant symptoms of depression including anhedonia, decreased appetite, poor sleep, and suicidal ideation. He vehemently denies that he would ever try to hurt himself however acknowledges to this provider that he constantly has thoughts of wanting to join his who has . The patient also expresses that he has recently quit his job because of how depressed and stressed out he has been. He is pretty working 2 jobs prior to loss of his . He is now currently unemployed. The patient reports that this past weekend, he was binging on alcohol and cocaine in order to cope with his worsening depression. He has realized that this has caused him more grief and problems and that he needs to get help. In regards to other mood symptoms, the patient denies any significant symptoms of bipolar disorder. He reports no increased goal-directed activity, grandiosity, or mood lability. The patient does acknowledge some psychotic symptoms including hearing the voice of his . He otherwise denies any other psychotic symptoms. He reports no visual hallucinations, paranoia, or other delusions. The patient does have access to a firearm. Patient states that he has never been treated or diagnosed for any psychiatric illness in the past. Patient denies being on any psychiatric medications. Patient denies any previous psychiatric hospitalizations. Patient denies any psychiatric outpatient follow-up. Patient denies any history of suicide attempts in the past. Hospital course: Upon admission to the unit patient was initially presenting as tearful, depressed, and endorsing suicidal ideation. Patient was however directable and agreeable to commence treatment. Patient got along well with other patients on the unit and followed unit protocol. Patient was compliant with the medications and denied any side effects throughout hospital course. Patient was started on a regimen of Remeron and Restoril for management of depression and anxiety. Over the course of hospital physician, the patient despite significant improvement in regards to target symptoms of depression and suicidal ideation. He became more future and goal oriented with a strong desire to move forward with his life and to relocate him to the [facility]. The patient does admit to having his [employer] license however denies any access to firearms or ot her weapons. This was also confirmed by the patient's family. On the day of discharge, the patient is not reporting any suicidal or homicidal ideation, intention, and/or plan. He is denying any auditory or visual hallucinations. He is not reporting any paranoia or other delusions. The patient does have significant history of substance abuse was counseled great length on abstaining from all substances including alcohol and marijuana. The patient also engages in crack cocaine use. He expresses desire to go to rehab however was informed that he is likely to go to rehab after his discharge from this hospital and not from this hospital. He was informed to call the access number should he desire to do so. The patient was counseled length on his medications including the risks, benefits, treatment alternatives. He was also strongly encouraged to follow-up in the outpatient setting. As the patient met no criteria for continued inpatient psychiatric hospital physician, he was subsequently discharge. Mental status exam: General Appearance: Patient appears to be stated age is alert, pleasant, and cooperative. Patient is in no acute distress and has fair hygiene and grooming Behavior: Patient is calmly seated without any agitated behavior. Speech: Patient's speech is fluent and nonpressured. Mood/Affect: Patient reports their mood is "much better", affect is congruent and euthymic. Suicidality/Homicidality: Patient denies having any suicidal or homicidal ideation intent or plan. Perceptions: Patient denies any auditory or visual hallucinations. Though content/process: There is no evidence of any delusional thought content and thought process is linear and goal-directed. Patient is future oriented. Memory and concentration: AOX3, grossly intact for the purposes of this session. Can spell "WORLD" backwards correctly. Judgment and insight: Improved with guarded prognosis Impression: Major depressive disorder, single episode, severe Cocaine use disorder Cannabis use disorder Plan: -Continue with discharge today as patient has improved and stabilized psychiatrically and is not currently an imminent threat to himself and/or others. Patient will remain at chronically elevated risk for harm to self and/or others due to his polysubstance abuse. -Continue medications: Remeron 15 mg by mouth at bedtime for depression/insomnia/appetite Restoril 7.5 mg by mouth at bedtime for 3 days for acute distress. -Patient was counseled on the need for medication compliance and appropriate follow-up at mental health and also primary care for medical issues. Patient verbalized understanding and agreed. -Social work to arrange for and conduct family meeting to ensure safety upon discharge and answer any questions/concerns. Social work also to arrange for patients follow up appointments for psychiatric care along with follow up with primary care provider. -Patient counseled on abstaining from recreational drugs and marijuana and alcohol. Was informed/educated on the adverse effects on their physical and mental health. Patient verbally agreed and understood. Patient was offered the access number for substance abuse. -Patient was instructed to return to the hospital or seek immediate medical care if their psychiatric or medical symptoms do worsen or reoccur. -Psychoeducation and supportive therapy provided to patient. Risks and benefits of pharmacological treatment versus the risks and benefits of nontreatment weight and discussed. Informed consent discussion held. Common side effects of psychotropics discussed such as, but not limited to headache, GI disturbance, sexual dysfunction, movement disorders, sedation, and orthostatic hypotension. Life threatening and blackbox warnings of prescribed medications also discussed. Potential risks of operating a vehicle or heavy machinery discussed with patient at length. Advised on importance of compliance and a reliable and responsible manner. Patient advised to review FDA consumer labeling of all medications prior to taking. Patient verbalized understanding of potential risks, and agrees with current treatment plan. Patient advised to medically contact physician/emergency personnel if any acute changes in condition occur. Vital Signs Temp 97.6 F 06/14/22 06:36 Pulse 77 06/14/22 06:36 Resp 14 06/14/22 06:36 BP 137/73 06/14/22 06:36 Pulse Ox 100 06/13/22 20:45 FiO2 Laboratory Results WBC 5.3 k/uL (3.8-10.6) 06/12/22 06:54 RBC 5.46 m/uL (4.30-5.90) 06/12/22 06:54 Hgb 17.3 gm/dL (13.0-17.5) D 06/12/22 06:54 Hct 52.7 % (39.0-53.0) 06/12/22 06:54 MCV 96.6 fL (80.0-100.0) 06/12/22 06:54 MCH 31.8 pg (25.0-35.0) 06/12/22 06:54 MCHC 32.9 g/dL (31.0-37.0) 06/12/22 06:54 RDW 13.5 % (11.5-15.5) 06/12/22 06:54 Plt Count 286 k/uL (150-450) 06/12/22 06:54 MPV 8.1 06/12/22 06:54 Neutrophils % 37 % 06/12/22 06:54 Lymphocytes % 57 % 06/12/22 06:54 Monocytes % 3 % 06/12/22 06:54 Eosinophils % 2 % 06/12/22 06:54 Basophils % 1 % 06/12/22 06:54 Neutrophils # 1.9 k/uL (1.3-7.7) 06/12/22 06:54 Lymphocytes # 3.0 k/uL (1.0-4.8) 06/12/22 06:54 Monocytes # 0.2 k/uL (0-1.0) 06/12/22 06:54 Eosinophils # 0.1 k/uL (0-0.7) 06/12/22 06:54 Basophils # 0.0 k/uL (0-0.2) 06/12/22 06:54 Sodium 140 mmol/L (137-145) 06/12/22 06:54 Potassium 4.1 mmol/L (3.5-5.1) 06/12/22 06:54 Chloride 104 mmol/L (98-107) 06/12/22 06:54 Carbon Dioxide 29 mmol/L (22-30) 06/12/22 06:54 Anion Gap 7 mmol/L 06/12/22 06:54 BUN 11 mg/dL (9-20) 06/12/22 06:54 Creatinine 1.21 mg/dL (0.66-1.25) 06/12/22 06:54 Est GFR (CKD-EPI)AfAm 81 (>60 ml/min/1.73 sqM) 06/12/22 06:54 Est GFR (CKD-EPI)NonAf 70 (>60 ml/min/1.73 sqM) 06/12/22 06:54 Glucose 92 mg/dL (74-99) 06/12/22 06:[address] Glu mg/dL 111 06/12/22 06:54 Hemoglobin A1c 5.5 % (0.0-6.0) 06/12/22 06:54 Calcium 9.6 mg/dL (8.4-10.2) 06/12/22 06:54 Total Bilirubin 0.7 mg/dL (0.2-1.3) 06/12/22 06:54 AST 26 U/L (17-59) 06/12/22 06:54 ALT 17 U/L (4-49) 06/12/22 06:54 Alkaline Phosphatase 56 U/L (38-126) 06/12/22 06:54 Total Protein 7.5 g/dL (6.3-8.2) 06/12/22 06:54 Albumin 4.6 g/dL (3.5-5.0) 06/12/22 06:54 Triglycerides 94.30 mg/dL (0.00-149.00) 06/12/22 06:54 Cholesterol 208.00 mg/dL (0.00-200.00) H 06/12/22 06:54 LDL Cholesterol, Calc 126.4 mg/dL (0.0-131.0) 06/12/22 06:54 VLDL Cholesterol, Calc 18.86 mg/dL (5.00-40.00) 06/12/22 06:54 HDL Cholesterol 62.70 mg/dL (40.00-60.00) H 06/12/22 06:54 Cholesterol/HDL Ratio 3.32 Ratio 06/12/22 06:54 TSH 2.450 mIU/L (0.465-4.680) 06/12/22 06:54 Urine Color Light Yellow 06/11/22 17:55 Urine Appearance Cloudy (Clear) 06/11/22 17:55 Urine pH 7.5 (5.0-8.0) 06/11/22 17:55 Ur Specific [place] 1.011 (1.001-1.035) 06/11/22 17:55 Urine Protein Negative (Negative) 06/11/22 17:55 Urine Glucose (UA) Negative (Negative) 06/11/22 17:55 Urine Ketones 1+ (Negative) H 06/11/22 17:55 Urine Blood Negative (Negative) 06/11/22 17:55 Urine Nitrite Negative (Negative) 06/11/22 17:55 Urine Bilirubin Negative (Negative) 06/11/22 17:55 Urine Urobilinogen <2.0 mg/dL (<2.0) 06/11/22 17:55 Ur Leukocyte Esterase Negative (Negative) 06/11/22 17:55 Urine RBC 1 /hpf (0-5) 06/11/22 17:55 Urine WBC 2 /hpf (0-5) 06/11/22 17:55 Ur Squamous Epith Cells <1 /hpf (0-4) 06/11/22 17:55 Urine Mucus Rare /hpf (None) H 06/11/22 17:55 Urine Yeast (Budding) Many /hpf (None) H 06/11/22 17:55 Urine Opiates Screen Not Detected (NotDetected) 06/11/22 17:55 Ur Oxycodone Screen Not Detected (NotDetected) 06/11/22 17:55 Urine Methadone Screen Not Detected (NotDetected) 06/11/22 17:55 Ur Propoxyphene Screen Not Detected (NotDetected) 06/11/22 17:55 Ur Barbiturates Screen Not Detected (NotDetected) 06/11/22 17:55 U Tricyclic Antidepress Not Detected (NotDetected) 06/11/22 17:55 Ur Phencyclidine Scrn Not Detected (NotDetected) 06/11/22 17:55 Ur Amphetamines Screen Not Detected (NotDetected) 06/11/22 17:55 U Methamphetamines Scrn Not Detected (NotDetected) 06/11/22 17:55 U Benzodiazepines Scrn Not Detected (NotDetected) 06/11/22 17:55 Urine Cocaine Screen Detected (NotDetected) H 06/11/22 17:55 U Marijuana (THC) Screen Detected (NotDetected) H 06/11/22 17:55 Coronavirus (PCR) Not Detected (Not Detectd) 06/11/22 21:20 Allergies Allergy/AdvReac Type Severity Reaction Status Date / Time No Known Allergies Allergy Verified 06/11/22 15:58 Patient Condition at Discharge: Stable Plan - Discharge Summary New Discharge Prescriptions: New Mirtazapine [Remeron] 15 mg PO HS 30 Days tab Temazepam [Restoril] 7.5 mg PO HS 3 Days #3 cap Continue Ergocalciferol [Vitamin D2 (1250 Mcg = 80037 Iu)] 1,250 mcg PO QMONTHLY lisinopriL [Zestril] 5 mg PO BID #60 tab Atorvastatin [Lipitor] 80 mg PO DAILY 30 Days #30 tab amLODIPine [Norvasc] 10 mg PO DAILY Discharge Medication List Ergocalciferol [Vitamin D2 (1250 Mcg = 22195 Iu)] 1,250 mcg PO QMONTHLY 04/23/22 [History] Atorvastatin [Lipitor] 80 mg PO DAILY 30 Days #30 tab 05/19/22 [Rx] lisinopriL [Zestril] 5 mg PO BID #60 tab 05/19/22 [Rx] amLODIPine [Norvasc] 10 mg PO DAILY 06/11/22 [History] Mirtazapine [Remeron] 15 mg PO HS 30 Days tab 06/14/22 [Rx] Temazepam [Restoril] 7.5 mg PO HS 3 Days #3 cap 06/14/22 [Rx] Follow up Appointment(s)/Referral(s): Geronimo Maldonado [Other] - 06/24/22 10:00 am (with Aleksandra ) Hardik Bernard MD [Primary Care Provider] - 1-2 days Patient Instructions/Handouts: Depression (DC) Activity/Diet/Wound Care/Special Instructions: Avoid the use of street drugs and alcohol. Take all prescriptions as prescribed. When you are in need of refills on your medications, please contact your medical provider and/or outpatient psychiatrist to have this done. Please go to scheduled outpatient appointment for aftercare treatment. If symptoms return or become worse, call the crisis line at and/or go to the nearest emergency room for evaluation. Discharge Disposition: HOME SELF-CARE
[2022-06-29] MEDS ORDERED: ERGOCALCIFEROL 1,250 MCG (50,000 IU) CAPSULE PO SCH (09:00)
== END 2022-06-14 13:35 | disposition home or self-care (01) | DRG 885 ==
LOC: EC 12:08 → 3MHU 22:51
PROVIDERS: ADMIT Psychiatry & Neurology Psychiatry; ATTEND Psychiatry & Neurology Psychiatry
DX: F32.2 Major depressive disorder, single episode, severe without psychotic features (principal); R45.851 Suicidal ideations; F14.10 Cocaine abuse, uncomplicated; I10 Essential (primary) hypertension; E78.5 Hyperlipidemia, unspecified; F11.10 Opioid abuse, uncomplicated; F10.10 Alcohol abuse, uncomplicated; F43.21 Adjustment disorder with depressed mood; G47.00 Insomnia, unspecified; F41.9 Anxiety disorder, unspecified; Z20.822 Contact with and (suspected) exposure to COVID-19; Z63.4 Disappearance and death of family member; Z63.8 Other specified problems related to primary support group; Z79.899 Other long term (current) drug therapy; Z56.0 Unemployment, unspecified; Z68.20 Body mass index [BMI] 20.0-20.9, adult; Z59.89 Other problems related to housing and economic circumstances
CPT/HCPCS: 80053; 80061; 80306; 81001; 82075; 83036; 84443; 85025; 87635; 93005; 99285

== ENCOUNTER 2024-01-14 08:36 | Emergency (ER) | payer OTHER ==
[2024-01-14 09:21] VITALS: RESP 18
--- NOTE | 2024-01-14 10:11 | ED ---
Headache HPI - General Chief Complaint: Headache Stated Complaint: headache,chills Time Seen by Provider: 01/14/24 08:45 Source: patient, RN notes reviewed Mode of arrival: ambulatory Limitations: no limitations - History of Present Illness Initial Comments: 53-year-old male presents emergency department chief complaint of headache. Patient states headache started overnight time. He took Motrin several hours ago with no relief. Patient states he has headache congestion body aches and cough. No reported fever. No GI symptoms no other complaints. - Related Data Home Medications Medication Instructions Recorded Confirmed Ergocalciferol [Vitamin D2 (1250 1,250 mcg PO QMONTHLY 04/23/22 06/11/22 Mcg = 82300 Iu)] amLODIPine [Norvasc] 10 mg PO DAILY 06/11/22 06/11/22 Previous Rx's Medication Instructions Recorded Atorvastatin [Lipitor] 80 mg PO DAILY 30 Days #30 tab 05/19/22 lisinopriL [Zestril] 5 mg PO BID #60 tab 05/19/22 Mirtazapine [Remeron] 15 mg PO HS 30 Days tab 06/14/22 Temazepam [Restoril] 7.5 mg PO HS 3 Days #3 cap 06/14/22 Allergies Allergy/AdvReac Type Severity Reaction Status Date / Time No Known Allergies Allergy Verified 01/14/24 08:57 Review of Systems ROS Statement: Those systems with pertinent positive or pertinent negative responses have been documented in the HPI. ROS Other: All systems not noted in ROS Statement are negative. Past Medical History Past Medical History: Hypertension History of Any Multi-Drug Resistant Organisms: None Reported Past Surgical History: No Surgical Hx Reported Past Anesthesia/Blood Transfusion Reactions: No Reported Reaction Past Psychological History: No Psychological Hx Reported Smoking Status: Never smoker Past Alcohol Use History: Occasional Past Drug Use History: Cocaine, Marijuana - Past Family History Mother Family Medical History: No Reported History General Exam Limitations: no limitations General appearance: alert, in no apparent distress Head exam: Present: atraumatic, normocephalic, normal inspection Eye exam: Present: normal appearance, PERRL, EOMI. Absent: scleral icterus, conjunctival injection, periorbital swelling ENT exam: Present: normal exam, normal oropharynx, mucous membranes moist Neck exam: Present: normal inspection, full ROM. Absent: tenderness, meningismus, lymphadenopathy Respiratory exam: Present: normal lung sounds bilaterally. Absent: respiratory distress, wheezes, rales, rhonchi, stridor Cardiovascular Exam: Present: regular rate, normal rhythm, normal heart sounds. Absent: systolic murmur, diastolic murmur, rubs, gallop, clicks Neurological exam: Present: alert, oriented X3, CN II-XII intact, reflexes normal. Absent: motor sensory deficit Course Vital Signs 01/14/24 01/14/24 08:54 09:11 Temperature 98.4 F Pulse Rate 86 Respiratory 18 18 Rate Blood Pressure 161/92 O2 Sat by Pulse 98 Oximetry Medical Decision Making - Medical Decision Making Was pt. sent in by a medical professional or institution (, PA, COMPANY SECRETARY, urgent care, hospital, or alf...) When possible be specific @ -No Did you speak to anyone other than the patient for history (EMS, parent, family, police, friend...)? What history was obtained from this source @ -No Did you review nursing and triage notes (agree or disagree)? Why? @ -I reviewed and agree with nursing and triage notes Were old charts reviewed (outside hosp., previous admission, EMS record, old EKG, old radiological studies, urgent care reports/EKG's, alf records)? Report findings @ -No old charts were reviewed Differential Diagnosis (chest pain, altered mental status, abdominal pain women, abdominal pain men, vaginal bleeding, weakness, fever, dyspnea, syncope, headache, dizziness, GI bleed, back pain, seizure, CVA, palpatations, mental health, musculoskeletal)? @ -[COVID 19, RSV, influenza, pneumonia, acute bronchitis, URI, this list is not all inclusive EKG interpreted by me (3pts min.). @ -None X-rays interpreted by me (1pt min.). @ -None done CT interpreted by me (1pt min.). @ -None done U/S interpreted by me (1pt. min.). @ -None done What testing was considered but not performed or refused? (CT, X-rays, U/S, la bs)? Why? @ -None What meds were considered but not given or refused? Why? @ -None Did you discuss the management of the patient with other professionals (professionals i.e. , PA, COMPANY SECRETARY, lab, RT, psych nurse, sexual assault social worker, digital media representative, teacher, executive vice president and chief financial officer, case reviewer)? Give summary @ -No Was smoking cessation discussed for >3mins.? @ -No Was critical care preformed (if so, how long)? @ -No Were there social determinants of health that impacted care today? How? (Homelessness, low income, unemployed, alcoholism, drug addiction, transportation, low edu. Level, literacy, decrease access to med. care, snf, rehab)? @ -No Was there de-escalation of care discussed even if they declined (Discuss DNR or withdrawal of care, Hospice)? DNR status @ -No What co-morbidities impacted this encounter? (DM, HTN, Smoking, COPD, CAD, Cancer, CVA, ARF, Chemo, Hep., AIDS, mental health diagnosis, sleep apnea, morbid obesity)? @ -None Was patient admitted / discharged? Hospital course, mention meds given and route, prescriptions, significant lab abnormalities, going to OR and other pertinent info. @ -Patient is influenza A positive. Patient is no signs distress will be discharged in stable condition return plans discussed. Undiagnosed new problem with uncertain prognosis? @ -No Drug Therapy requiring intensive monitoring for toxicity (Heparin, Nitro, Insulin, Cardizem)? @ -No Were any procedures done? @ -No Diagnosis/symptom? @ -Influenza A Acute, or Chronic, or Acute on Chronic? @ -Acute Uncomplicated (without systemic symptoms) or Complicated (systemic symptoms)? @ -Uncomplicated Side effects of treatment? @ -No Exacerbation, Progression, or Severe Exacerbation? @ -No Poses a threat to life or bodily function? How? (Chest pain, USA, ND, pneumonia, PE, COPD, DKA, ARF, appy, cholecystitis, CVA, Diverticulitis, Homicidal, Suicidal, threat to staff... and all critical care pts) @ -No - Lab Data Lab Results 01/14/24 Range/Units 09:09 Influenza Type A (PCR) Detected A (Not Detectd) Influenza Type B (PCR) Not Detected (Not Detectd) RSV (PCR) Not Detected (Not Detectd) SARS-CoV-2 (PCR) Not Detected (Not Detectd) Disposition Clinical Impression: Influenza A Disposition: HOME SELF-CARE Condition: Stable Instructions (If sedation given, give patient instructions): Influenza (ED) Additional Instructions: Please return to the Emergency Department if symptoms worsen or any other concerns. Is patient prescribed a controlled substance at d/c from ED?: No Referrals: Hardik Bernard MD [Primary Care Provider] - 1-2 days Time of Disposition: 10:11
[2024-01-14] MEDS: IBUPROFEN 600 MG TAB PO STA (10:15)
[2024-01-14] MEDS: ACETAMINOPHEN TAB 500 MG TAB PO STA (10:16)
[2024-01-14 10:30] VITALS: BP 145/72; PULSE 81; TEMP 98.1
== END 2024-01-14 10:23 | disposition home or self-care (01) ==
LOC: EC 08:36
DX: J10.1 Influenza due to other identified influenza virus with other respiratory manifestations (principal); I10 Essential (primary) hypertension; F12.90 Cannabis use, unspecified, uncomplicated; F14.90 Cocaine use, unspecified, uncomplicated; Z20.822 Contact with and (suspected) exposure to COVID-19; Z79.899 Other long term (current) drug therapy
CPT/HCPCS: 87636; 99284

== ENCOUNTER 2024-01-15 08:35 | Emergency (ER) | payer OTHER ==
--- NOTE | 2024-01-15 09:25 | ED ---
Nausea/Vomiting/Diarrhea HPI - General Chief complaint: Upper Respiratory Infection Stated complaint: FLU+, HEADACHE Time Seen by Provider: 01/15/24 08:59 Source: patient, RN notes reviewed Mode of arrival: ambulatory Limitations: no limitations - History of Present Illness Initial comments: This is a 53-year-old male who presents to the emergency department for nausea, vomiting, and headaches. Patient was evaluated here yesterday and diagnosed with influenza A. Since then he has had persistent nausea and vomiting and is unable to keep anything down. Also complaining of headaches that he cannot manage at home as well as fevers and bodyaches. He has not taken his blood pressure medication in 3 days because of this. Denies any chest pain or rosa isela rtness of breath. MD complaint: nausea, vomiting - Related Data Home Medications Medication Instructions Recorded Confirmed Ergocalciferol [Vitamin D2 (1250 1,250 mcg PO QMONTHLY 04/23/22 06/11/22 Mcg = 35460 Iu)] amLODIPine [Norvasc] 10 mg PO DAILY 06/11/22 06/11/22 Previous Rx's Medication Instructions Recorded Atorvastatin [Lipitor] 80 mg PO DAILY 30 Days #30 tab 05/19/22 lisinopriL [Zestril] 5 mg PO BID #60 tab 05/19/22 Mirtazapine [Remeron] 15 mg PO HS 30 Days tab 06/14/22 Temazepam [Restoril] 7.5 mg PO HS 3 Days #3 cap 06/14/22 Metoclopramide [Reglan] 10 mg PO Q6H PRN #20 tab 01/15/24 Ondansetron Odt [Zofran Odt] 4 mg PO Q8HR PRN #20 tab 01/15/24 Allergies Allergy/AdvReac Type Severity Reaction Status Date / Time No Known Allergies Allergy Verified 01/14/24 08:57 Review of Systems ROS Statement: Those systems with pertinent positive or pertinent negative responses have been documented in the HPI. ROS Other: All systems not noted in ROS Statement are negative. Past Medical History Past Medical History: Hypertension Additional Past Medical History / Comment(s): influenza History of Any Multi-Drug Resistant Organisms: None Reported Past Surgical History: No Surgical Hx Reported Past Anesthesia/Blood Transfusion Reactions: No Reported Reaction Past Psychological History: No Psychological Hx Reported Smoking Status: Never smoker Past Alcohol Use History: Occasional Past Drug Use History: Cocaine, Marijuana - Past Family History Mother Family Medical History: No Reported History General Exam Limitations: no limitations General appearance: alert, in no apparent distress Head exam: Present: atraumatic, normocephalic, normal inspection Respiratory exam: Present: normal lung sounds bilaterally. Absent: respiratory distress, wheezes, rales, rhonchi, stridor Cardiovascular Exam: Present: regular rate, normal rhythm, normal heart sounds. Absent: systolic murmur, diastolic murmur, rubs, gallop, clicks Neurological exam: Present: alert, oriented X3, CN II-XII intact Psychiatric exam: Present: normal affect, normal mood Skin exam: Present: warm, dry, intact, normal color. Absent: rash Course Vital Signs 01/15/24 01/15/24 01/15/24 08:38 09:40 11:23 Temperature 99.8 F H 99.9 F H Pulse Rate 102 H 90 Respiratory 20 18 Rate Blood Pressure 233/125 181/99 185/105 O2 Sat by Pulse 99 98 Oximetry 01/15/24 12:58 Temperature 99 F Pulse Rate 88 Respiratory 16 Rate Blood Pressure 174/94 O2 Sat by Pulse 96 Oximetry Medical Decision Making - Medical Decision Making This is a 53 year old male who presents to the emergency department for nausea, vomiting, and headaches. Was pt. sent in by a medical professional or institution? @ -No Did you speak to anyone other than the patient for history? @ -None Did you review nursing and triage notes? @ -Yes, and I agree, it is accurate with regards to the patient's symptoms. Were old charts reviewed? @ -No Differential Diagnosis? @ -Differential Nausea and Vomiting: Gastroenteritis, cholecystitis, appendicitis, pancreatitis, migraine, benign positional vertigo, food borne illness, pyelonephritis, irritable bowel syndrome, influenza, Covid, GERD, incarcerated hernia, intestinal obstruction, this is not meant to be an all-inclusive list. EKG interpreted by me (3pts min.)? @ -EKG interpreted by me demonstrating the following: Sinus tachycardia. Ventricular rate 100 bpm, MO interval 135 ms, QRS duration 84 ms, QTc 390 ms. X-rays interpreted by me (1pt min.)? @ -Not obtained CT interpreted by me (1pt min.)? @ -Not obtained U/S interpreted by me (1pt. min.)? @ -Not obtained What testing was considered but not performed? (CT, X-rays, U/S, labs)? Why? @ -None What meds were considered but not given? Why? @ -None Did you discuss the management of the patient with other professionals? @ -No Did you reconcile home meds? @ -No Was smoking cessation discussed for >3mins.? @ -No Was critical care preformed (if so, how long)? @ -No Were there social determinants of health that impacted care today? How? (Homelessness, low income, unemployed, alcoholism, drug addiction, transportation, low edu. Level, literacy, decrease access to med. care, prison, rehab)? @ -No Was there de-escalation of care discussed even if they declined? (Discuss DNR or withdrawal of care, Hospice)? @ -No What co-morbidities impacted this encounter? (DM, HTN, Smoking, COPD, CAD, Cancer, CVA, Hep., AIDS, mental health diagnosis, sleep apnea, morbid obesity)? @ -HTN Was patient admitted / discharged? @ -Discharged. Lab work unremarkable. Labetalol administered for the patient's blood pressure. He was given a migraine cocktail consisting of IV fluids, Toradol, Decadron, and Benadryl. Zofran administered for nausea. His headache then resolved, however he continued to have mild nausea. He was subsequently given a dose of Reglan, which he felt was more beneficial. He was tolerating oral intake afterwards. He did have an elevated temperature in the emergency department and he was given a dose of Tylenol as well. Prescription for Zofran and Reglan provided with dosing instructions reviewed. Advised to slowly advance his diet as tolerated and remain well-hydrated. Also advised ibuprofen and Tylenol as needed for any additional fevers, getting plenty of rest, and remaining well-hydrated. Undiagnosed new problem with uncertain prognosis? @ -None Drug Therapy requiring intensive monitoring for toxicity (Heparin, Nitro, Insulin, Cardizem)? @ -None Were any procedures done? @ -None Diagnosis/symptom? @ -Influenza A, N/V Acute, or Chronic, or Acute on Chronic? @ -Acute Uncomplicated (without systemic symptoms) or Complicated (systemic symptoms)? @ -Uncomplicated Side effects of treatment? @ -None Exacerbation, Progression, or Severe Exacerbation] @ -Not applicable Poses a threat to life or bodily function? @ -No Return precautions reviewed in depth, the patient is instructed to return to the emergency department with any new, worsening, or concerning symptoms. Patient verbalized understanding. This case was discussed in detail with the attending ED physician, Dr. Mancuso. Presentation, findings, and treatment plan discussed in detail as well. - Lab Data Result diagrams: 01/15/24 09:34 01/15/24 09:34 Lab Results 01/15/24 01/15/24 01/15/24 Range/Units 09:34 09:34 09:34 WBC 8.0 (3.8-10.6) k/uL RBC 5.12 (4.30-5.90) m/uL Hgb 15.9 (13.0-17.5) gm/dL Hct 47.5 (39.0-53.0) % MCV 92.9 (80.0-100.0) fL MCH 31.1 (25.0-35.0) pg MCHC 33.5 (31.0-37.0) g/dL RDW 13.3 (11.5-15.5) % Plt Count 188 (150-450) k/uL MPV 7.5 Neutrophils % 86 % Lymphocytes % 7 % Monocytes % 4 % Eosinophils % 2 % Basophils % 1 % Neutrophils # 6.9 (1.3-7.7) k/uL Lymphocytes # 0.6 L (1.0-4.8) k/uL Monocytes # 0.3 (0-1.0) k/uL Eosinophils # 0.1 (0-0.7) k/uL Basophils # 0.1 (0-0.2) k/uL Sodium 134 L (137-145) mmol/L Potassium 3.9 (3.5-5.1) mmol/L Chloride 98 (98-107) mmol/L Carbon Dioxide 24 (22-30) mmol/L Anion Gap 12 mmol/L BUN 12 (9-20) mg/dL Creatinine 0.95 (0.66-1.25) mg/dL Est GFR (CKD-EPI)AfAm >90 (>60 ml/min/1.73 sqM) Est GFR (CKD-EPI)NonAf >90 (>60 ml/min/1.73 sqM) Glucose 97 (74-99) mg/dL Plasma Lactic Acid [place] 1.5 (0.7-2.0) mmol/L Calcium 9.8 (8.4-10.2) mg/dL Magnesium 1.7 (1.6-2.3) mg/dL Total Bilirubin 0.5 (0.2-1.3) mg/dL AST 41 (17-59) U/L ALT 19 (4-49) U/L Alkaline Phosphatase 64 (38-126) U/L Total Protein 8.4 H (6.3-8.2) g/dL Albumin 5.2 H (3.5-5.0) g/dL Disposition Clinical Impression: Influenza A, Nausea and vomiting, Headache Disposition: HOME SELF-CARE Instructions (If sedation given, give patient instructions): Influenza (ED), Acute Nausea and Vomiting (ED) Additional Instructions: Return to the emergency department with any new, worsening, or concerning symptoms. Alternate with ibuprofen and Tylenol as needed for any additional fevers or headaches. You can take the Zofran up to every 8 hours as needed for nausea and vomiting. If that is not effective you can also take the Reglan up to every 6 hours. Slowly advance your diet as tolerated and remain well- hydrated. Make sure you resume taking your blood pressure medications. Follow up with your primary care provider in 1-2 days. Prescriptions: Metoclopramide [Reglan] 10 mg PO Q6H PRN #20 tab PRN Reason: Nausea And Vomiting Ondansetron Odt [Zofran Odt] 4 mg PO Q8HR PRN #20 tab PRN Reason: Nausea And Vomiting Is patient prescribed a controlled substance at d/c from ED?: No Referrals: Hardik Bernard MD [Primary Care Provider] - 1-2 days Time of Disposition: 12:23
[2024-01-15] MEDS: KETOROLAC 15 MG/ML 1 ML VIAL IVP STA (09:31)
[2024-01-15] MEDS: ONDANSETRON 4 MG/2 ML VIAL IVP STA (09:31)
[2024-01-15] MEDS: DEXAMETHASONE SOD PHOSPHATE 10 MG/ML 1 ML VIAL IVP STA (09:31)
[2024-01-15] MEDS: LABETALOL 5 MG/ML VIAL MDV IVP STA (09:31)
[2024-01-15] MEDS: diphenhydrAMINE 50 MG/ML 1 ML VIAL IVP STA (09:31)
[2024-01-15] MEDS: SODIUM CHLORIDE 0.9% 1,000 ML IV STA (09:34)
[2024-01-15 09:56] LABS: Basophils # (A) 0.1 k/uL (0-0.2); Basophils % (A) 1 %; Eosinophils # (A) 0.1 k/uL (0-0.7); Eosinophils % (A) 2 %; HCT 47.5 % (39.0-53.0); HGB 15.9 gm/dL (13.0-17.5); Lymphocytes # (A) 0.6 k/uL (1.0-4.8); Lymphocytes % (A) 7 %; MCH 31.1 pg (25.0-35.0); MCHC 33.5 g/dL (31.0-37.0); MCV 92.9 fL (80.0-100.0); Mean Platelet Volume 7.5; Monocytes # (A) 0.3 k/uL (0-1.0); Monocytes % (A) 4 %; Neutrophils # (A) 6.9 k/uL (1.3-7.7); Neutrophils % (A) 86 %; Platelet Count 188 k/uL (150-450); RBC 5.12 m/uL (4.30-5.90); RDW 13.3 % (11.5-15.5)
[2024-01-15 10:09] LABS: ALT 19 U/L (4-49); AST 41 U/L (17-59); African American GFR (CKD) >90 (>60 ml/min/1.73 sqM); Albumin 5.2 g/dL (3.5-5.0); Alkaline Phosphatase 64 U/L (38-126); Anion Gap 12 mmol/L; Blood Urea Nitrogen 12 mg/dL (9-20); Calcium 9.8 mg/dL (8.4-10.2); Carbon Dioxide 24 mmol/L (22-30); Chloride 98 mmol/L (98-107); Glucose 97 mg/dL (74-99); Magnesium 1.7 mg/dL (1.6-2.3); Non-African American GFR(CKD) >90 (>60 ml/min/1.73 sqM); Potassium 3.9 mmol/L (3.5-5.1); Sodium 134 mmol/L (137-145); Total Bilirubin 0.5 mg/dL (0.2-1.3); Total Protein 8.4 g/dL (6.3-8.2)
[2024-01-15] MEDS: METOCLOPRAMIDE 5 MG/ML 2 ML VIAL IVP STA (11:22)
[2024-01-15] MEDS: ACETAMINOPHEN TAB 500 MG TAB PO STA (12:50)
[2024-01-15 13:18] VITALS: BP 174/94; PULSE 88; RESP 16; TEMP 99
== END 2024-01-15 12:58 | disposition home or self-care (01) ==
LOC: EC 08:35
DX: J10.1 Influenza due to other identified influenza virus with other respiratory manifestations (principal); R11.2 Nausea with vomiting, unspecified; R51.9 Headache, unspecified; R00.0 Tachycardia, unspecified; I10 Essential (primary) hypertension; F12.90 Cannabis use, unspecified, uncomplicated; F14.90 Cocaine use, unspecified, uncomplicated; Z79.899 Other long term (current) drug therapy
CPT/HCPCS: 36415; 93005; 80053; 83605; 83735; 85025; 99284; 96374; 96375 ×5; 96361 ×2; J1200; J1100; J2765; J2405; J1885; J1920

== ENCOUNTER 2024-03-12 02:05 | Emergency (ER) | payer OTHER ==
[2024-03-12 02:29] VITALS: TEMP 97.7
--- NOTE | 2024-03-12 04:14 | ED ---
Headache HPI - General Mode of arrival: ambulatory Limitations: no limitations <Rafi Jones - Last Filed: 03/12/24 04:13> - General Source: patient, RN notes reviewed Mode of arrival: ambulatory Limitations: no limitations - History of Present Illness MD Complaint: headache <Xiomara Castillo - Last Filed: 03/12/24 12:32> - General Chief Complaint: Headache Stated Complaint: Headache, high bp Time Seen by Provider: 03/12/24 04:13 - History of Present Illness Initial Comments: Quick note: 53-year-old male presenting with chief complaint of headache. States that he has not been taking his blood pressure medication as he supposed to. States that he has had several stressful life events recently. (Rafi Jones) This is a 53-year-old male who presents to the emergency department for a headache and elevated blood pressure. Patient has a history of hypertension and is treated with lisinopril and amlodipine. States that he has not taken his medication in several days and was not taking it as he was supposed to. Patient does note recent life stressors, states that he lost his 2 years ago, recently resigned from his job in [place], and just moved back to [place] from [place]. States that his headache started a couple of days ago. Denies any visual changes, chest pain, or shortness of breath. (Xiomara Castillo) - Related Data Home Medications Medication Instructions Recorded Confirmed Ergocalciferol [Vitamin D2 (1250 1,250 mcg PO QMONTHLY 04/23/22 06/11/22 Mcg = 40968 Iu)] amLODIPine [Norvasc] 10 mg PO DAILY 06/11/22 06/11/22 Previous Rx's Medication Instructions Recorded Atorvastatin [Lipitor] 80 mg PO DAILY 30 Days #30 tab 05/19/22 lisinopriL [Zestril] 5 mg PO BID #60 tab 05/19/22 Mirtazapine [Remeron] 15 mg PO HS 30 Days tab 06/14/22 Temazepam [Restoril] 7.5 mg PO HS 3 Days #3 cap 06/14/22 Metoclopramide [Reglan] 10 mg PO Q6H PRN #20 tab 01/15/24 Ondansetron Odt [Zofran Odt] 4 mg PO Q8HR PRN #20 tab 01/15/24 amLODIPine 10 mg PO DAILY #30 tab 03/12/24 lisinopriL [Zestril] 5 mg PO DAILY #30 tab 03/12/24 Allergies Allergy/AdvReac Type Severity Reaction Status Date / Time No Known Allergies Allergy Verified 03/12/24 02:22 Review of Systems ROS Other: All systems not noted in ROS Statement are negative. <Rafi Jones - Last Filed: 03/12/24 04:13> ROS Other: All systems not noted in ROS Statement are negative. <Xiomara Castillo - Last Filed: 03/12/24 12:32> ROS Statement: Those systems with pertinent positive or pertinent negative responses have been documented in the HPI. Past Medical History Past Medical History: Hypertension Additional Past Medical History / Comment(s): influenza History of Any Multi-Drug Resistant Organisms: None Reported Past Surgical History: No Surgical Hx Reported Past Anesthesia/Blood Transfusion Reactions: No Reported Reaction Past Psychological History: No Psychological Hx Reported Smoking Status: Never smoker Past Alcohol Use History: Occasional Past Drug Use History: Cocaine, Marijuana - Past Family History Mother Family Medical History: No Reported History <Rafi Jones - Last Filed: 03/12/24 04:13> General Exam Limitations: no limitations <Rafi Jones - Last Filed: 03/12/24 04:13> Limitations: no limitations General appearance: alert, in no apparent distress Head exam: Present: atraumatic, normocephalic, normal inspection Eye exam: Present: normal appearance, PERRL, EOMI. Absent: scleral icterus, conjunctival injection, periorbital swelling Respiratory exam: Present: normal lung sounds bilaterally. Absent: respiratory distress, wheezes, rales, rhonchi, stridor Cardiovascular Exam: Present: regular rate, normal rhythm, normal heart sounds. Absent: systolic murmur, diastolic murmur, rubs, gallop, clicks Neurological exam: Present: alert, oriented X3, CN II-XII intact Psychiatric exam: Present: normal affect, normal mood Skin exam: Present: warm, dry, intact, normal color. Absent: rash <Xiomara Castillo - Last Filed: 03/12/24 12:32> - General Exam Comments Initial Comments: Visual Physical Exam Vital signs reviewed General: Well-appearing, nontoxic, no acute distress. Head: Normocephalic, atraumatic Eyes: PERRLA, EOMI ENT: Airway patent Chest: Nonlabored breathing Skin: No visual rash, normal skin tone Neuro: Alert and oriented 3 Musculoskeletal: No gross abnormalities (Rafi Jones) Course Vital Signs 03/12/24 03/12/24 03/12/24 02:21 05:27 07:56 Temperature 97.7 F Pulse Rate 97 81 87 Respiratory 18 18 18 Rate Blood Pressure 217/133 236/132 202/126 O2 Sat by Pulse 100 100 98 Oximetry 03/12/24 03/12/24 03/12/24 08:09 08:15 08:30 Temperature Pulse Rate 85 65 Respiratory 20 16 Rate Blood Pressure 211/140 199/111 O2 Sat by Pulse 100 99 99 Oximetry 03/12/24 03/12/24 03/12/24 08:45 09:00 09:15 Temperature Pulse Rate 69 66 64 Respiratory 15 14 15 Rate Blood Pressure 201/119 167/102 159/102 O2 Sat by Pulse 100 99 99 Oximetry 03/12/24 09:30 Temperature Pulse Rate 77 Respiratory 14 Rate Blood Pressure 166/92 O2 Sat by Pulse 99 Oximetry Medical Decision Making <Rafi Jones - Last Filed: 03/12/24 04:13> - Lab Data Result diagrams: 03/12/24 06:25 03/12/24 06:25 - Radiology Data Radiology results: report reviewed, image reviewed <Xiomara Castillo - Last Filed: 03/12/24 12:32> - Medical Decision Making I performed the quick note portion of this visit, electronically signed Rafi Jones PA-C (Rafi Jones) This is a 53 year old male who presents to the emergency department for elevated blood pressure and headaches. Was pt. sent in by a medical professional or institution? @ -No Did you speak to anyone other than the patient for history? @ -No Did you review nursing and triage notes? @ -Yes, and I agree, it is accurate with regards to the patient's symptoms. Were old charts reviewed? @ -No Differential Diagnosis? @ -Differential Headache: Migraine, tension, cluster, carbon monoxide, central venous thrombosis, pension karma temporal arteritis, acute closure glaucoma, intercranial hemorrhage, mastoiditis, sinusitis, head injury, this is not meant to be an all-inclusive list. EKG interpreted by me (3pts min.)? @ -EKG interpreted by me demonstrating the following: Sinus rhythm. Ventricular rate 80 bpm, RI interval 160 ms, QRS duration 91 ms, QTc 417 ms. X-rays interpreted by me (1pt min.)? @ -Chest x-ray obtained, my interpretation identifies no localized consolidations or infiltrates. CT interpreted by me (1pt min.)? @ -CT scan of the brain obtained. My interpretation identifies no evidence of an acute intracranial hemorrhage. U/S interpreted by me (1pt. min.)? @ -Not obtained What testing was considered but not performed? (CT, X-rays, U/S, labs)? Why? @ -None What meds were considered but not given? Why? @ -None Did you discuss the management of the patient with other professionals? @ -No Did you reconcile home meds? @ -No Was smoking cessation discussed for >3mins.? @ -No Was critical care preformed (if so, how long)? @ -No Were there social determinants of health that impacted care today? How? (Homelessness, low income, unemployed, alcoholism, drug addiction, transportation, low edu. Level, literacy, decrease access to med. care, [facility], rehab)? @ -No Was there de-escalation of care discussed even if they declined? (Discuss DNR or withdrawal of care, Hospice)? @ -No What co-morbidities impacted this encounter? (DM, HTN, Smoking, COPD, CAD, Cancer, CVA, Hep., AIDS, mental health diagnosis, sleep apnea, morbid obesity)? @ -Hypertension Was patient admitted / discharged? @ -Discharged. Lab work unremarkable. Urinalysis negative for signs of infection. Chest x-ray reveals no acute process. CT scan of the brain obtained also revealing no acute findings. Patient's blood pressure was 217/133 on arrival. He was initially treated with amlodipine and lisinopril without significant improvement. He was then given 20 mg of labetalol. Blood pressure improved to 166/92 at the point of discharge. Discussed with the patient that because we were able to get his blood pressure under control and he has no signs of end organ dysfunction, he can be discharged home. Refill on his lisinopril and amlodipine was provided. He is advised to take this daily as prescribed and check his blood pressure at home. Also advised close follow-up with his primary care provider. Undiagnosed new problem with uncertain prognosis? @ -None Drug Therapy requiring intensive monitoring for toxicity (Heparin, Nitro, Insulin, Cardizem)? @ -None Were any procedures done? @ -None Diagnosis/symptom? @ -Hypertension Acute, or Chronic, or Acute on Chronic? @ -Chronic Uncomplicated (without systemic symptoms) or Complicated (systemic symptoms)? @ -Uncomplicated Side effects of treatment? @ -None Exacerbation, Progression, or Severe Exacerbation] @ -Progression Poses a threat to life or bodily function? @ -This increases his risk for multiple medical problems such as heart attacks and strokes if he does not improve. Return precautions reviewed in depth, the patient is instructed to return to the emergency department with any new, worsening, or concerning symptoms. Patient verbalized understanding. This case was discussed in detail with the attending ED physician, Dr. Mancuso. Presentation, findings, and treatment plan discussed in detail as well. (Xiomara Castillo) - Lab Data Lab Results 03/12/24 03/12/24 03/12/24 Range/Units 06:25 06:25 06:25 WBC 9.5 (3.8-10.6) k/uL RBC 5.46 (4.30-5.90) m/uL Hgb 16.3 (13.0-17.5) gm/dL Hct 52.0 (39.0-53.0) % MCV 95.3 (80.0-100.0) fL MCH 29.8 (25.0-35.0) pg MCHC 31.3 (31.0-37.0) g/dL RDW 14.1 (11.5-15.5) % Plt Count 305 (150-450) k/uL MPV 7.5 Neutrophils % 68 % Lymphocytes % 26 % Monocytes % 4 % Eosinophils % 1 % Basophils % 1 % Neutrophils # 6.5 (1.3-7.7) k/uL Lymphocytes # 2.5 (1.0-4.8) k/uL Monocytes # 0.3 (0-1.0) k/uL Eosinophils # 0.1 (0-0.7) k/uL Basophils # 0.0 (0-0.2) k/uL PT 10.8 (10.0-12.5) sec INR 1.0 (<1.2) APTT 27.7 (22.0-30.0) sec Sodium (137-145) mmol/L Potassium (3.5-5.1) mmol/L Chloride (98-107) mmol/L Carbon Dioxide (22-30) mmol/L Anion Gap mmol/L BUN (9-20) mg/dL Creatinine (0.66-1.25) mg/dL Est GFR (CKD-EPI)AfAm (>60 ml/min/1.73 sqM) Est GFR (CKD-EPI)NonAf (>60 ml/min/1.73 sqM) Glucose (74-99) mg/dL Calcium (8.4-10.2) mg/dL Total Bilirubin (0.2-1.3) mg/dL AST (17-59) U/L ALT (4-49) U/L Alkaline Phosphatase (38-126) U/L Troponin I (0.000-0.034) ng/mL Total Protein (6.3-8.2) g/dL Albumin (3.5-5.0) g/dL Urine Color Colorless Urine Appearance Clear (Clear) Urine pH 7.0 (5.0-8.0) Ur Specific [place] 1.007 (1.001-1.035) Urine Protein 1+ H (Negative) Urine Glucose (UA) Negative (Negative) Urine Ketones Negative (Negative) Urine Blood Trace H (Negative) Urine Nitrite Negative (Negative) Urine Bilirubin Negative (Negative) Urine Urobilinogen <2.0 (<2.0) mg/dL Ur Leukocyte Esterase Negative (Negative) Urine RBC 1 (0-5) /hpf Urine WBC <1 (0-5) /hpf Urine Mucus Rare H (None) /hpf 03/12/24 03/12/24 Range/Units 06:25 06:25 WBC (3.8-10.6) k/uL RBC (4.30-5.90) m/uL Hgb (13.0-17.5) gm/dL Hct (39.0-53.0) % MCV (80.0-100.0) fL MCH (25.0-35.0) pg MCHC (31.0-37.0) g/dL RDW (11.5-15.5) % Plt Count (150-450) k/uL MPV Neutrophils % % Lymphocytes % % Monocytes % % Eosinophils % % Basophils % % Neutrophils # (1.3-7.7) k/uL Lymphocytes # (1.0-4.8) k/uL Monocytes # (0-1.0) k/uL Eosinophils # (0-0.7) k/uL Basophils # (0-0.2) k/uL PT (10.0-12.5) sec INR (<1.2) APTT (22.0-30.0) sec Sodium 141 (137-145) mmol/L Potassium 4.0 (3.5-5.1) mmol/L Chloride 103 (98-107) mmol/L Carbon Dioxide 27 (22-30) mmol/L Anion Gap 11 mmol/L BUN 11 (9-20) mg/dL Creatinine 0.95 (0.66-1.25) mg/dL Est GFR (CKD-EPI)AfAm >90 (>60 ml/min/1.73 sqM) Est GFR (CKD-EPI)NonAf >90 (>60 ml/min/1.73 sqM) Glucose 89 (74-99) mg/dL Calcium 10.4 H (8.4-10.2) mg/dL Total Bilirubin 0.5 (0.2-1.3) mg/dL AST 31 (17-59) U/L ALT 18 (4-49) U/L Alkaline Phosphatase 68 (38-126) U/L Troponin I 0.012 (0.000-0.034) ng/mL Total Protein 9.4 H (6.3-8.2) g/dL Albumin 5.4 H (3.5-5.0) g/dL Urine Color Urine Appearance (Clear) Urine pH (5.0-8.0) Ur Specific [place] (1.001-1.035) Urine Protein (Negative) Urine Glucose (UA) (Negative) Urine Ketones (Negative) Urine Blood (Negative) Urine Nitrite (Negative) Urine Bilirubin (Negative) Urine Urobilinogen (<2.0) mg/dL Ur Leukocyte Esterase (Negative) Urine RBC (0-5) /hpf Urine WBC (0-5) /hpf Urine Mucus (None) /hpf Disposition <Jones,Maloree - Last Filed: 03/12/24 04:13> Is patient prescribed a controlled substance at d/c from ED?: No Time of Disposition: 09:43 <Xiomara Castillo - Last Filed: 03/12/24 12:32> Clinical Impression: Hypertension, Headache Disposition: HOME SELF-CARE Instructions (If sedation given, give patient instructions): Hypertension (ED) Additional Instructions: Return to the emergency department with any new, worsening, or concerning symptoms. Make sure you begin taking both medications for your blood pressure as prescribed. Check your blood pressure at home if you are able to by purchasing a blood pressure cuff. Follow up with your primary care provider in 1-2 days. Prescriptions: amLODIPine 10 mg PO DAILY #30 tab lisinopriL [Zestril] 5 mg PO DAILY #30 tab Referrals: Hardik Bernard MD [Primary Care Provider] - 1-2 days
[2024-03-12] MEDS: KETOROLAC 15 MG/ML 1 ML VIAL IM STA (04:22)
[2024-03-12] MEDS: amLODIPine 10 MG TAB PO STA (04:22)
[2024-03-12 07:13] LABS: Basophils % (A) 1 %; Eosinophils # (A) 0.1 k/uL (0-0.7); Eosinophils % (A) 1 %; HGB 16.3 gm/dL (13.0-17.5); Lymphocytes # (A) 2.5 k/uL (1.0-4.8); Lymphocytes % (A) 26 %; MCH 29.8 pg (25.0-35.0); MCHC 31.3 g/dL (31.0-37.0); MCV 95.3 fL (80.0-100.0); Mean Platelet Volume 7.5; Monocytes # (A) 0.3 k/uL (0-1.0); Monocytes % (A) 4 %; Neutrophils # (A) 6.5 k/uL (1.3-7.7); Neutrophils % (A) 68 %; Platelet Count 305 k/uL (150-450); RBC 5.46 m/uL (4.30-5.90); RDW 14.1 % (11.5-15.5); WBC 9.5 k/uL (3.8-10.6)
--- NOTE | 2024-03-12 07:25 | CT ---
EXAMINATION TYPE: CT brain wo con DATE OF EXAM: 03/12/2024 COMPARISON: 05/17/2022 HISTORY: Headache, HTN CT DLP: 1168.[address] of the brain was performed. The ventricles, basal cisterns and sulci overlying the cerebral convexities demonstrate mild enlargem ent. There is no evidence for intracranial hemorrhage or sulcal effacement. There is decreased attenuation about the periventricular white matter and deep white matter of both c erebral hemispheres, compatible with chronic small vessel ischemia. Differential diagnosis does inclu de demyelination. No mass effects are seen.No midline shift. Osseous calvarium is intact. If symptoms persist consider MRI. IMPRESSION: 1. Age related atrophic and chronic small vessel ischemic change without acute intracranial process s een at this time.
[2024-03-12 07:28] LABS: Partial Thromboplastin Time 27.7 sec (22.0-30.0); Prothrombin Time 10.8 sec (10.0-12.5)
--- NOTE | 2024-03-12 07:28 | XR ---
EXAMINATION TYPE: XR chest 2V DATE OF EXAM: 03/12/2024 COMPARISON: 05/17/2022 HISTORY: Shortness of breath TECHNIQUE: Frontal and lateral views of the chest are obtained. Linear artifact seen within the uppe r lobes bilaterally. FINDINGS: Scattered senescent parenchymal changes noted. Hyperinflation compatible with COPD. No evidence for infiltrate. No evidence for atelectasis. Heart size is stable. Mediastinal structures are stable and grossly unremarkable. No evidence for hilar prominence. Degenerative changes dorsal spine. IMPRESSION: 1. No evidence for acute pulmonary disease.
[2024-03-12 07:29] LABS: ALT 18 U/L (4-49); AST 31 U/L (17-59); African American GFR (CKD) >90 (>60 ml/min/1.73 sqM); Albumin 5.4 g/dL (3.5-5.0); Alkaline Phosphatase 68 U/L (38-126); Anion Gap 11 mmol/L; Blood Urea Nitrogen 11 mg/dL (9-20); Calcium 10.4 mg/dL (8.4-10.2); Carbon Dioxide 27 mmol/L (22-30); Chloride 103 mmol/L (98-107); Glucose 89 mg/dL (74-99); Non-African American GFR(CKD) >90 (>60 ml/min/1.73 sqM); Sodium 141 mmol/L (137-145); Total Bilirubin 0.5 mg/dL (0.2-1.3); Total Protein 9.4 g/dL (6.3-8.2)
[2024-03-12 08:01] LABS: Appearance,Urine Clear (Clear); Bilirubin,Urine Negative (Negative); Blood,Urine Trace (Negative); Color,Urine Colorless; Glucose,Urine (UA) Negative (Negative); Ketones,Urine Negative (Negative); Leukocyte Esterase,Urine Negative (Negative); Mucus,Urine Rare /hpf; Nitrite,Urine Negative (Negative); Protein,Urine 1+ (Negative); RBC,Urine 1 /hpf (0-5); Specific Gravity,Urine 1.007 (1.001-1.035); Urobilinogen,Urine <2.0 mg/dL (<2.0); WBC,Urine <1 /hpf (0-5)
[2024-03-12] MEDS: LABETALOL 5 MG/ML VIAL MDV IVP STA (08:38)
[2024-03-12] MEDS: ACETAMINOPHEN TAB 500 MG TAB PO STA (09:26)
[2024-03-12 09:39] VITALS: BP 166/92; PULSE 77; RESP 14
== END 2024-03-12 09:54 | disposition home or self-care (01) ==
LOC: EC 02:05
DX: R51.9 Headache, unspecified (principal); I10 Essential (primary) hypertension; Z79.899 Other long term (current) drug therapy
CPT/HCPCS: 36415; 93005; 80053; 84484; 85025; 85610; 85730; 81001; 71046; 70450; 99284; 96372; 96374; J1885; J1920